=== PATIENT | female | born 1955 | race Caucasian/White ===

== ENCOUNTER 2017-05-02 22:45 | Inpatient (IN) | payer MEDICARE ==
[2017-05-02] MEDS ORDERED: Lorazepam 2 MG/ML VIAL ONE (23:47)
[2017-05-03] MEDS ORDERED: Albuterol Sulfate 2.5 mg/0.5 ml Neb ONE (01:02)
[2017-05-03 01:15] LABS: Actual Bicarbonate (HCO3a) 20.9 mEq/L (22-26); Base Excess (BEa) -4.4 mEq/L (0 (+/-) 2.5); CO2 Tension 38.9 mmHg (35.0-45.0); Hematocrit-ABG 37.4 % (36.0-47.0); Hemoglobin (Hb) 12.1 g/dL (12.0-16.0); O2 Tension (PaO2) 183.6 mmHg (80.0-100.0); pH, Arterial 7.35 (7.35-7.45)
[2017-05-03 01:16] LABS: Analyzer IN Cardio ER; Calcium, Ionized 1.2 mmol/L (1.12-1.30); Puncture Site LRA
[2017-05-03 01:17] LABS: ALV-art Gradient 124.275 (0-20)
[2017-05-03] MEDS ORDERED: Potassium Chloride 20 MEQ TAB ONE (01:42)
[2017-05-03 01:44] LABS: #Lymphocytes 0.9 thou/uL (1.20-3.40); #Monocytes 0.3 thou/uL (0.11-0.59); %Eosinophils 0.1 % (0.0-10.0); %Lymphocytes 5.5 % (21.0-51.0); %Monocytes 1.9 % (0.0-10.0); %Neutrophils 92.5 % (42.0-75.0); Mean Corpuscular HGB CONC 33.5 g/dL (32.0-36.0); Mean Corpuscular Hemoglobin 30.2 pg (27.0-31.0); Mean Corpuscular Volume 90.3 fl (81.0-99.0); Mean Platelet Volume 8.2 fL (7.4-10.4); Platelet Count 419 thou/uL (130-400); RBC Distribution Width 11.8 % (11.5-14.5); White Blood Cell (WBC) Count 16.2 thou/uL (4.8-10.8)
[2017-05-03 02:09] LABS: ALT (SGPT) 8 U/L (8-55); AST (SGOT) 14 U/L (5-34); Albumin 3.1 g/dL (3.4-4.8); Alkaline Phosphatase 202 U/L (40-150); Anion Gap 18 mmol/L (10-20); BUN (Urea Nitrogen) 14 mg/dL (9.8-20.1); Bilirubin, Total 0.5 mg/dL (0.2-1.2); Calc. Creatinine Clearance 0 mL/min (70-130); Calcium 9.3 mg/dL (7.8-10.44); Carbon Dioxide 22 mmol/L (23-31); Chloride 101 mmol/L (98-107); Estimated GFR-MDRD 69; Globulin 4.2 g/dL (2.4-3.5); Glucose 386 mg/dL (80-115); Magnesium 1.7 mg/dL (1.6-2.6); Protein, Total 7.3 g/dL (6.0-8.3); Sodium 138 mmol/L (136-145)
[2017-05-03 02:13] LABS: CKMB 2.2 ng/mL (0-6.6); Potassium 2.8 mmol/L (3.5-5.1); Troponin I Less than 0.010 ng/mL (< 0.028)
[2017-05-03] MEDS ORDERED: Potassium Chloride 20 MEQ/100 ML PREMIX BAG ONE (03:08)
[2017-05-03] MEDS ORDERED: Albuterol Sulfate 2.5 mg/3 ml Neb ONE ×2 (03:15)
[2017-05-03] MEDS ORDERED: Dextrose 5% in Water 1,000 ML IV PRN ×3 (05:08→07:53)
[2017-05-03] MEDS ORDERED: Dextrose 50% Abboject 50 ML SYRINGE IVP PRN (05:08)
[2017-05-03] MEDS ORDERED: HumaLOG 300 UNITS/3 ML VIAL SC PRN (05:08)
[2017-05-03 05:31] VITALS: BMI 19.7
[2017-05-03] MEDS ORDERED: Albuterol Sulfate 2.5 mg/3 ml Neb NEB PRN (07:47)
[2017-05-03] MEDS ORDERED: Dextrose 50% Abboject 50 ML SYRINGE SLOW IVP PRN ×2 (07:52→07:53)
--- NOTE | 2017-05-03 07:58 | CT ---
PRELIMINARY REPORT/[facility]/EMERGENCY AFTER HOURS PROCEDURE: EXAM: CT Angiography Chest With Intravenous Contrast EXAM DATE/TIME: Exam ordered 05/03/2017 2:21 AM CLINICAL HISTORY: 62 years old, female; Pain; Chest pain; Type not specified; Patient HX: R/O pe TECHNIQUE: Axial computed tomographic angiography images of the chest with intravenous contrast using pulmonary embolism protocol. CONTRAST: 100 mL of ISOVUE administered intravenously. COMPARISON: No relevant prior studies available. FINDINGS: Pulmonary arteries: Unremarkable. No pulmonary embolism. Aorta: No acute findings. No thoracic aortic aneurysm. Lungs: There are extensive centrilobular nodular and tree in bud opacities throughout both lungs, con sistent with severe infectious bronchiolitis. Multiple lobular groundglass opacities in the periphery of the lungs likely represent pneumonia. Pleural space: Unremarkable. No significant effusion. No pneumothorax. Heart: Unremarkable. No cardiomegaly. No significant pericardial effusion. No evidence of RV dysfunct ion. Bones/joints: No acute fracture. No dislocation. Soft tissues: Unremarkable. Lymph nodes: Unremarkable. No enlarged lymph nodes. IMPRESSION: 1. There are extensive centrilobular nodular and tree in bud opacities throughout both lungs, consist ent with severe infectious bronchiolitis. 2. Multiple lobular groundglass opacities in the periphery of the lungs likely represent pneumonia. RECOMMEND followup imaging in 6-8 weeks to ensure resolution. Thank you for allowing us to participate in the care of your patient. Dictated and Authenticated by: Nick Juarez MD 05/03/2017 2:54 AM Central Time ([place] & [place]) FINAL REPORT CT ANGIOGRAM OF CHEST: Date: 05/03/17 HISTORY: COPD exacerbation. Difficulty breathing. Shortness of breath. COMPARISON: 09/13/16. TECHNIQUE: CT angiogram of chest performed in axial plane. Coronal and bilateral oblique three-dimensional refor matted images are submitted for interpretation. FINDINGS: This report agrees with the preliminary report by Moustapha. No evidence of pulmonary artery embolism to t he level of the segmental arteries. There are extensive central lobular and tree-in-bud opacities thr oughout the lung parenchyma with evidence for infectious bronchiolitis. Continued surveillance to ens ure resolution is recommended. Additional ground-glass opacities suggesting infiltrate or pneumonia a re noted. POS: [facility]
[2017-05-03] MEDS ORDERED: Potassium Chloride 40 MEQ in Premix Bag 1 BAG IVPB SCH (08:00)
[2017-05-03] MEDS ORDERED: Potassium Chloride 40 MEQ, Admixture Fee 1 EACH in Sodium Chloride 0.9% 250 ML 250 ML IVPB SCH (08:15)
[2017-05-03 08:37] LABS: Hemoglobin A1c 11.1 % (4.0-6.0)
[2017-05-03] MEDS ORDERED: Non-Formulary Item 1 EACH (Lisinopril/Hydrochlorothiazide [Lisinopril-Hctz 10-12.5 Mg Tab PO SCH (09:00)
[2017-05-03] MEDS ORDERED: Non-Formulary Item 1 EACH (Ranitidine Hcl [Ranitidine Hcl] 300 MG) PO SCH (09:00)
[2017-05-03] MEDS ORDERED: Levothyroxine Sodium 50 MCG TAB PO SCH (09:00)
[2017-05-03] MEDS: Insulin Detemir 100 UNITS/ML 25 UNITS in Pre-Filled Syringe 1 EACH SC SCH (09:09)
[2017-05-03] MEDS: Azithromycin 500 MG, Admixture Fee 1 EACH in Sodium Chloride 0.9% 250 ML 250 ML IVPB SCH ×2 (09:26→10:36)
[2017-05-03] MEDS: HYDROcodone/Acetaminophen 5/325 mg Tablet PO PRN ×3 (09:37→21:48)
--- NOTE | 2017-05-03 09:37 | RAD ---
CHEST 1 VIEW: Date: 05/03/17 HISTORY: Shortness of breath. COPD exacerbation. COMPARISON: 05/02/17. FINDINGS: Portable upright chest demonstrates normal cardiac silhouette. There are diffuse reticulonodular opac ities. There is no pleural effusion or pneumothorax. IMPRESSION: Diffuse reticulonodular opacities. POS: [facility]
[2017-05-03] MEDS: clonazePAM 0.5 MG TAB PO SCH ×2 (09:38→21:43)
[2017-05-03] MEDS: Gabapentin 300 MG CAP PO SCH ×5 (09:38→21:43)
[2017-05-03] MEDS: Enoxaparin Sodium 40 MG/0.4 ML SYRINGE SC SCH (09:38)
[2017-05-03] MEDS: Famotidine 20 MG TAB PO SCH (09:38)
[2017-05-03] MEDS: Lisinopril/Hydrochlorothiazide 10 mg/12.5 mg Tablet PO SCH (09:39)
--- NOTE | 2017-05-03 11:06 | HP ---
DATE OF ADMISSION: 05/03/2017 CHIEF COMPLAINT: Shortness of breath. HISTORY OF PRESENT ILLNESS: This is a 62-year-old young white female with a known history of COPD wi th multiple admissions in the past. The patient presented this time with acute exacerbation, which s tarted a few days ago, which the patient was taking DuoNebs at home with no help and was persistent p ain in the left side of the chest, more of pleuritic in nature. She presented to the ER. Pain was e xcruciating and is more aggravated on deep breathing. She had a chest x-ray and also CTA of the ches t in the ER, which showed an evidence of bilateral pneumonia with evidence of bronchiolitis. She den ies having any nausea at this time. No vomiting. She continues to have short of breath. She has be en saturating well on 4 liters at 98%. Denies having any abdominal pain. Denies having any vomiting , diarrhea, or constipation. No history of any sick contacts. The patient did not take any flu vacc ine this season, but her flu test was negative. She rates her pain as 8 on 10 in intensity, nonradia ting on the left side of the chest and ribcage and aggravated on deep breathing. PAST MEDICAL HISTORY: 1. Asthma. 2. Type 2 diabetes mellitus. 3. Hypothyroidism. 4. Chronic obstructive pulmonary disease. PAST SURGICAL HISTORY: 1. x2. 2. Cholecystectomy. 3. Partial hysterectomy. 4. Left hip surgery. 5. Left submandibular gland removal because of the salivary stones. SOCIAL HISTORY: The patient denies alcohol. No history of illicit drug use. She smokes 1 pack a da y. FAMILY HISTORY: Significant for [place] in her father at young age. ALLERGIES: 1. CEPHALEXIN. 2. CIPROFLOXIN 3. CYCLOBENZAPRINE. 4. LEVOFLOXACIN. 5. NSAIDS. 6. PREDNISONE. 7. TORADOL. HOME MEDICATIONS: 1. Metformin 1000 mg p.o. b.i.d. 2. Clonazepam 0.5 mg p.o. b.i.d. 3. Gabapentin 600 mg p.o. q.i.d. 4. Lamotrigine 25 mg p.o. at bedtime. 5. Levothyroxine 112 mcg daily. 6. Lisinopril 10 one tablet p.o. daily. 7. Quetiapine 100 mg tablet at bedtime. 8. Ranitidine 300 mg p.o. daily. REVIEW OF SYSTEMS: All 12 systems are reviewed with the patient thoroughly and found to be negative at this time except the ones described in HPI. Constitutional: Weight loss or gain, sense of well-being, ability to conduct usual activities, exerc ise tolerance. Skin/Breast: Rash, itching, changes in hair growth or loss, nail changes, breast lumps, tenderness, swelling, nipple discharge. Eyes: Vision, double vision, tearing, blind spots, pain. ENT/Mouth: Headaches (location, time of onset, duration, precipitating factors), vertigo, lightheadedness, injury. Vision, double vision, tearing, blind spots, pain, nose b leeding, colds, obstruction, discharge, dental difficulties, gingival bleeding, dentures, neck stiffn ess, pain, tenderness, masses in thyroid or other areas Cardiovascular: Precordial pain, substernal distress, palpitations, syncope, dyspnea on exertion, or thopnea, nocturnal paroxysmal dyspnea, edema, cyanosis, hypertension, heart murmurs, varicosities, ph lebitis, claudication. Respiratory: Pain, shortness of breath, wheezing, stridor, cough, hemoptysis, fever or night sweats Gastrointestinal: Poor appetite, dysphagia, indigestion, abdominal pain, heartburn, eructation, naus ea, vomiting, hematemesis, jaundice, constipation, or diarrhea, abnormal stools (amanda-colored, tarry, bloody, greasy, foul smelling), flatulence, hemorrhoids, recent changes in bowel habits. Genitourinary: Urgency, frequency, dysuria, nocturia, hematuria, polyuria, oliguria, unusual (or kelly nge in) color of urine, stones, hesitancy, change in size of stream, dribbling, acute retention or in continence, libido, potency. Musculoskeletal: Pain, swelling, redness or heat of muscles or joints, limitation, of motion, muscular weakness, atrophy, cramps. Neurologic/Psychiatric: Convulsions, paralyses, tremor, incoordination, parasthesias, difficulties w ith memory of speech, sensory or motor disturbances, or muscular coordination (ataxia, tremor), emoti onal problems, anxiety, depression, previous psychiatric care, unusual perceptions, hallucinations. Allergy/Immunologic: Skin rash, anemia, bleeding tendency, polydipsia, polyuria, intolerance to heat or cold. PHYSICAL EXAMINATION: VITAL SIGNS: Blood pressures are 174/79, heart rate 130, respiratory rate 24, saturation 96% on 2 li ters. GENERAL: The patient is moderately built and moderately nourished, and continues to have left-sided pleuritic chest pain. Otherwise, she has no respiratory distress at this time. HEENT: Atraumatic, normocephalic. PERRLA. Extraocular movements were intact. Oral mucosa is pink and moist. CARDIOVASCULAR: S1, S2 normal. No murmurs, rubs or gallops. LUNGS: Bilateral air entry is reduced with wheezing and crackles noted in the lower bases, more pron ounced in the left lung in the lower base. NECK: No thyromegaly. No JVD was noted. ABDOMEN: Soft, nontender, no guarding, no rebound tenderness. Bowel sounds normal. MUSCULOSKELETAL: No calf tenderness. No pedal edema. No joint tenderness, no joint swelling. SKIN: No cyanosis, no erythema, no rash, no pallor. NEUROLOGIC: FERRY HAND examination II-XII intact. No focal deficits are noted. PSYCHIATRIC: No signs of suicidal ideation. No signs of harsha. No signs of depression. LYMPH NODES: No evidence of any lymphadenopathy was noted. LABORATORY DATA: WBC 16.2, hemoglobin is 13.0, hematocrit is 28.8, platelets 419. Sodium 138, potas sium 2.8, chloride is 101, bicarbonate is 22, BUN is 14, creatinine 0.84, blood sugar is 386. A1c is 11.1. Blood gases were done in the ER with a pH of 7.3, pCO2 38.9, and pO2 of 183. The patient was on 50% inspired oxygen. CTA was done of the chest and thorax showed no evidence of any pulmonary artery embolism to the level of the segmental arteries, but there is extensive centrilobular and tree-in-bud opacities throughout the lung parenchyma with evidence of infectious bronchiolitis. ASSESSMENT AND PLAN: 1. Acute chronic obstructive pulmonary disease exacerbation. 2. Acute infectious bronchiolitis. 3. Acute hypokalemia. 4. Acute hyperglycemia with poorly controlled type 2 diabetes mellitus. 5. Hypothyroidism. 6. Hyperlipidemia. 7. Hypertension, poorly controlled. PLAN: 1. Plan is to start the patient on nebulizer treatments every 4 hours with DuoNebs and albuterol neb s every 2 hours as needed. The patient has pretty severe bronchiolitis condition, but her saturation s are stable at this time, but will start the patient on IV steroids for severe inflammation. We mariposa l consult Pulmonary if the patient's condition gets worsen. 2. The patient has a severe hypokalemia likely from the diuretic use. At this time, we will start t he patient on potassium protocol replacement and we will check the magnesium too. 3. The patient has a poorly controlled type 2 diabetes mellitus, most likely of oral steroid use for her asthma. We will start the patient on Levemir 30 units in the morning and will do sliding scale insulin. Her A1c was 11.1. The patient has poorly controlled diabetes. I will start the patient on diabetic diet, 1800 calories. 4. Poorly controlled hypertension. We will restart the patient's home medications, most likely this could be either from the steroids or could be from the pain the patient is experiencing. 5. The patient has this persistent lower chest pain, most likely pleuritic in nature. We will close ly monitor for ruling out any cardiac disease and we will continue the patient on the telemetry. 6. DVT prophylaxis. Lovenox 40 mg subcu daily. I spent 70 minutes with this patient.
[2017-05-03] MEDS: Insulin Regular 300 UNITS/3 ML VIAL SC PRN ×2 (11:33→17:17)
[2017-05-03] MEDS: Insulin Regular 300 UNITS/3 ML VIAL ONE ×2 (11:39→11:41)
[2017-05-03] MEDS ORDERED: ISOVUE-370 76%-LOCM 1 ML ONE (13:53)
[2017-05-03] MEDS: lamoTRIgine 25 MG TAB PO SCH (21:43)
[2017-05-03] MEDS: HumaLOG 300 UNITS/3 ML VIAL SC PRN (21:44)
[2017-05-04 05:51] LABS: Anion Gap 14 mmol/L (10-20); BUN (Urea Nitrogen) 20 mg/dL (9.8-20.1); Calc. Creatinine Clearance 68 mL/min (70-130); Carbon Dioxide 22 mmol/L (23-31); Chloride 105 mmol/L (98-107); Estimated GFR-MDRD 81; Glucose 290 mg/dL (80-115); Potassium 3.8 mmol/L (3.5-5.1); Sodium 137 mmol/L (136-145)
[2017-05-04] MEDS: Levothyroxine Sodium 112 MCG TAB PO SCH (05:55)
[2017-05-04] MEDS: Insulin Regular 300 UNITS/3 ML VIAL SC PRN ×3 (05:57→16:40)
[2017-05-04 05:58] LABS: Band 26 % (5-11); Lymphocytes 4 % (21-51); MDiff Complete? YES; Mean Corpuscular HGB CONC 32.8 g/dL (32.0-36.0); Mean Corpuscular Hemoglobin 29.6 pg (27.0-31.0); Mean Corpuscular Volume 90.4 fl (81.0-99.0); Monocytes 1 % (0-10); Neutrophil 69 % (42-75); PLT Morphology Comment Appears Adequate; Platelet Count 376 thou/uL (130-400); RBC Distribution Width 11.9 % (11.5-14.5); Red Blood Cell (RBC) Count 3.72 mill/uL (4.20-5.40); White Blood Cell (WBC) Count 22.7 thou/uL (4.8-10.8)
[2017-05-04] MEDS: clonazePAM 0.5 MG TAB PO SCH ×2 (08:58→20:27)
[2017-05-04] MEDS: Azithromycin 500 MG, Admixture Fee 1 EACH in Sodium Chloride 0.9% 250 ML 250 ML IVPB SCH (09:00)
[2017-05-04] MEDS: Gabapentin 300 MG CAP PO SCH ×4 (09:01→20:27)
[2017-05-04] MEDS: Lisinopril/Hydrochlorothiazide 10 mg/12.5 mg Tablet PO SCH (09:01)
[2017-05-04] MEDS: Famotidine 20 MG TAB PO SCH (09:01)
[2017-05-04] MEDS: Insulin Detemir 100 UNITS/ML 25 UNITS in Pre-Filled Syringe 1 EACH SC SCH (09:02)
[2017-05-04] MEDS: Enoxaparin Sodium 40 MG/0.4 ML SYRINGE SC SCH (09:02)
[2017-05-04] MEDS: HYDROcodone/Acetaminophen 5/325 mg Tablet PO PRN ×2 (12:37→16:53)
--- NOTE | 2017-05-04 16:13 | PDOC.PN ---
- Subjective Encounter Start Date: 05/04/17 Encounter Start Time: 13:00 Patient is seen today, alert and oriented , She remains in severe pain in chest. She still SOB. - Objective Resuscitation Status: Resuscitation Status FULL:Full Resuscitation MAR Reviewed: Yes Vital Signs & Weight: Vital Signs (12 hours) Temp Pulse Pulse Pulse Resp BP BP 05/04/17 15:44 119 H 20 05/04/17 15:19 125 H 124 H 172/66 H 05/04/17 15:17 98.0 F 114 H 05/04/17 12:31 97.7 F 124 H 21 H 05/04/17 11:40 114 H 16 05/04/17 09:01 119 H 126/63 05/04/17 08:36 05/04/17 07:46 97.7 F 119 H 16 BP BP BP BP Pulse Ox Pulse Ox Pulse Ox 05/04/17 15:44 05/04/17 15:19 134/61 93 L 93 L 05/04/17 15:17 134/61 94 L 05/04/17 12:31 134/68 98 05/04/17 11:40 05/04/17 09:01 05/04/17 08:36 98 05/04/17 07:46 126/63 98 Weight Weight 116 lb 9.6 oz I&O: 05/03/17 05/04/17 05/05/17 06:59 06:59 06:59 Intake Total 1080 Balance 1080 Result Diagrams: 05/04/17 05:10 05/04/17 05:10 Additional Labs: Accuchecks 05/04/17 05/04/17 05/03/17 11:33 05:51 20:02 POC Glucose 277 H 376 H 218 H 05/03/17 16:08 POC Glucose 236 H Radiology Reviewed by me: Yes Phys Exam - Physical Examination HEENT: PERRLA, moist MMs Neck: no nodes, no JVD Respiratory: wheezing present Cardiovascular: RRR, no significant murmur Gastrointestinal: soft, non-tender Musculoskeletal: no edema, pulses present Neurological: non-focal, normal sensation Lymphatic: no nodes Psychiatric: normal affect, A&O x 3 Skin: no rash, normal turgor Dx/Plan (1) Sepsis Code(s): A41.9 - SEPSIS, UNSPECIFIED ORGANISM Status: Acute Comment: Patient has bacteremia with gram positive Cocci in chanin, started on vancomycina and Zosyn, will continue to Monitor closley for any worsening SOB, Will continue with IV fluids,.Discussed with pharmacy regarding PCN allergies. (2) COPD with acute exacerbation Code(s): J44.1 - CHRONIC OBSTRUCTIVE PULMONARY DISEASE W (ACUTE) EXACERBATION Status: Acute Comment: Will continue IV steroids, Will consult Pulmonary for worsening SOB. Continue Nebs (3) Acute respiratory failure with hypoxia Code(s): J96.01 - ACUTE RESPIRATORY FAILURE WITH HYPOXIA Status: Acute Comment: Will continue IV steroids, An dNebs treatment, pt able to maintain saturations. (4) HTN (hypertension) Code(s): I10 - ESSENTIAL (PRIMARY) HYPERTENSION Status: Acute (5) Type II diabetes mellitus, uncontrolled Code(s): E11.65 - TYPE 2 DIABETES MELLITUS WITH HYPERGLYCEMIA Status: Acute Comment: Continur with SSI and levemir, keep BG 140-180 - Plan cont current plan of care, PT/OT, hospice social worker, respiratory therapy, incentive spirometry, DVT proph w/lovenox * . - Discharge Day Encounter end time: 14:00 (60 min critical care time) Review of Systems - Review of Systems Constitutional: fever Eyes: negative: Pain, Vision Change, Conjunctivae Inflammation, Eyelid Inflammation, Redness, Other ENT: negative: Ear Pain, Ear Discharge, Nose Pain, Nose Discharge, Nose Congestion, Mouth Pain, Mouth Swelling, Throat Pain, Throat Swelling, Other Respiratory: Cough, Shortness of Breath, SOB with Excertion, Pleuritic Pain Cardiovascular: chest pain Gastrointestinal: negative: Nausea, Vomiting, Abdominal Pain, Diarrhea, Constipation, Melena, Hematochezia, Other Genitourinary: negative: Dysuria, Frequency, Incontinence, Hematuria, Retention , Other Musculoskeletal: negative: Neck Pain, Shoulder Pain, Arm Pain, Back Pain, Hand Pain, Leg Pain, Foot Pain, Other Skin: negative: Rash, Lesions, Ricky, Bruising, Other Neurological: negative: Weakness, Numbness, Incoordination, Change in Speech, Confusion, Seizures, Other - Medications/Allergies Allergies/Adverse Reactions: Allergies Allergy/AdvReac Type Severity Reaction Status Date / Time levofloxacin [From Levaquin] Allergy Severe Short of Verified 05/03/17 05:31 Breath cephalexin monohydrate Allergy Mild Rash Verified 05/03/17 05:31 [From Keflex] ciprofloxacin HCl Allergy Mild Rash Verified 05/03/17 05:31 [From Cipro] NSAIDS (Non-Steroidal Allergy Mild Verified 05/03/17 05:31 Anti-Inflamma ketorolac tromethamine Allergy Verified 05/03/17 05:31 [From Toradol] prednisone Allergy Verified 05/03/17 05:31 cyclobenzaprine HCl AdvReac Mild Stomach Verified 05/03/17 05:31 [From Flexeril] Ache Medications: Current Medications Hydrocodone Bitart/Acetaminophen ([place] 5/325) 1 tab PO Q4H PRN PRN Reason: Pain Last Admin: 05/04/17 12:37 Dose: 1 tab Albuterol Sulfate (Ventolin) 2.5 mg NEB [id number] PRN PRN Reason: SOB &/or Wheezing Albuterol/Ipratropium (Duoneb) 3 ml NEB [id number] [facility] Last Admin: 05/04/17 15:44 Dose: 3 ml Clonazepam (Klonopin) 0.5 mg PO BID [facility] Last Admin: 05/04/17 08:58 Dose: Not Given Dextrose/Water (Dextrose 50%) 25 gm SLOW IVP PRN PRN PRN Reason: Hypoglycemia Enoxaparin Sodium (Lovenox) 40 mg SC 0900 [facility] Last Admin: 05/04/17 09:02 Dose: 40 mg Famotidine (Pepcid) 40 mg PO DAILY [facility] Last Admin: 05/04/17 09:01 Dose: 40 mg Gabapentin (Neurontin) 600 mg PO QID [facility] Last Admin: 05/04/17 12:35 Dose: 600 mg Glucagon (Glucagon) 1 mg IM PRN PRN PRN Reason: Hypoglycemia Guaifenesin/Dextromethorphan (Robitussin Dm) 15 ml PO Q4H PRN PRN Reason: Cough Lisinopril/HCTZ (Prinizide 10-12.5) 1 tab PO DAILY [facility] Last Admin: 05/04/17 09:01 Dose: 1 tab Azithromycin 500 mg/Miscellaneous Medication 1 each/ Sodium Chloride 250 mls @ 250 mls/hr IVPB Q24HR [facility] Last Admin: 05/04/17 09:00 Dose: 250 mls Dextrose/Water (D5w) 1,000 mls @ 0 mls/hr IV .Q0M PRN; As Directed PRN Reason: Hypoglycemia Insulin Detemir 25 units/ (Miscellaneous Medication) 0.25 mls @ 0 mls/hr SC QAM [facility] Last Admin: 05/04/17 09:02 Dose: 0.25 mls Vancomycin HCl 1 gm/ Sodium (Chloride) 250 mls @ 250 mls/hr IVPB Q12HR [facility] Insulin Human Lispro (Humalog) 0 units SC .BEDTIME SLIDING SC PRN; Protocol PRN Reason: BEDTIME SLIDING SCALE Last Admin: 05/03/17 21:44 Dose: 2 unit Insulin Human Regular (Humulin R) 0 units SC .MODERATE SLIDING SC PRN PRN Reason: Moderate Correctional Scale Last Admin: 05/04/17 13:19 Dose: 6 units Lamotrigine (Lamictal) 25 mg PO [facility] Last Admin: 05/03/17 21:43 Dose: 25 mg Levothyroxine Sodium (Synthroid) 112 mcg PO 0600 [facility] Last Admin: 05/04/17 05:55 Dose: 112 mcg Methylprednisolone Sodium Succinate (Solu-Medrol) 40 mg IVP Q6HR [facility] Last Admin: 05/04/17 11:37 Dose: 40 mg Quetiapine Fumarate (Seroquel) 200 mg PO [facility] Last Admin: 05/03/17 21:43 Dose: 200 mg Sodium Chloride (Flush - Normal Saline) 10 ml IVF Q12HR [facility] Last Admin: 05/04/17 09:02 Dose: 10 ml Sodium Chloride (Flush - Normal Saline) 10 ml IVF PRN PRN PRN Reason: Saline Flush
[2017-05-04] MEDS: Sodium Chloride 0.9% 1,000 ML IV SCH ×2 (16:50→23:55)
[2017-05-04] MEDS: Piperacillin/Tazobactam 3.375 GM in Sodium Chloride 0.9% 100 ML IVPB SCH ×2 (19:25→23:49)
[2017-05-04] MEDS: Vancomycin HCl 750 MG in Sodium Chloride 0.9% 250 ML 250 ML IVPB SCH ×3 (19:29→21:07)
--- NOTE | 2017-05-04 20:06 | CON ---
DATE OF CONSULTATION: 05/04/2017 CONSULTING PHYSICIAN: Dr. Gabriel from the Hospitalist group. REASON FOR CONSULTATION: Chronic obstructive pulmonary disease exacerbation following encompassed 50 minutes time spent with the patient, greater than 50% of that time was spent counseling, and coordin ating the patient's care on the floor. HISTORY OF THE PRESENT ILLNESS: This patient is a 62-year-old female, who acts as her own historian. I have also the opportunity to review the records in her chart, she was admitted to the hospital on 05/03/2017 with a 3-week history of increasing cough, congestion, and shortness of breath. She stat es that she is a half-way smoker, now down to about 1 pack per day, previously smoking one 1-1/2 pack s per day. She has not ever been told she has COPD up until this admission. She has not been taking any type of inhaler therapy at home. She has been coughing up greenish yellow sputum for quite sometime. She denies any fever or chills. PAST MEDICAL HISTORY: 1. Asthma. 2. Diabetes mellitus type 2. 3. Hypothyroidism. PAST SURGICAL HISTORY: 1. section 2. Tonsillectomy and adenoidectomy. 3. Cholecystectomy. 4. Appendectomy. 5. Hysterectomy. 6. Left hip surgery. 7. Left submandibular gland removal. SOCIAL HISTORY: The patient smokes at least 1 pack per day. She occasionally smokes marijuana. She apparently has tested positive for methamphetamines, but denies use of that. She does not drink alc ohol. She is disabled from bipolar disorder and lives at home. She states that her son was murdered 1 year ago and she is still sad from that. FAMILY MEDICAL HISTORY: Remarkable for heart disease. ALLERGIES: CEPHALEXIN, CIPRO, CYCLOBENZAPRINE, LEVOFLOXACIN, NSAIDS, PREDNISONE, and TORADOL. MEDICATIONS PRIOR TO ADMISSION: Metformin, clonazepam, gabapentin, Lamictal, levothyroxine, lisinopr il, Seroquel, and ranitidine. REVIEW OF SYSTEMS: Twelve-point review of systems otherwise negative except for in the history of pr esent illness. PHYSICAL EXAMINATION: VITAL SIGNS: Temperature 98.0, pulse 119, respirations 20, blood pressure 170/66, and O2 sat 93% on 3 liters. GENERAL: She is awake and alert. She converses without difficulty and in no distress. She is alert and oriented. NEUROLOGIC: Cranial nerves II-XII are intact. She moves all 4 extremities, no sensory deficits note d. HEENT: Pupils react. Sclerae are anicteric. Oropharynx clear. NECK: No adenopathy, no JVD, no bruits. LUNGS: She has bilateral harsh expiratory wheezing and a few crackles. CARDIAC: S1 and S2, slightly tachycardic without murmur, rub, or gallop. ABDOMEN: Soft, nontender, no hepatosplenomegaly. EXTREMITIES: No clubbing, cyanosis, or edema. SKIN: Demonstrates no rashes. Cultures from her blood, it demonstrated gram positive cocci in 1 out of 2 bottles. LABORATORY AND X-RAY FINDINGS: Sodium 137, potassium 3.8, chloride 105, CO2 of 22, BUN 20, creatinin e 0.7, glucose 290. White blood cell count 22.7. Hemoglobin 11, hematocrit 33, platelet count 376. Her CT of the chest and chest x-ray were reviewed personally by myself. She has bronchiectasis note d throughout. She has some tree-in-bud opacities. ASSESSMENT: 1. Chronic obstructive pulmonary disease with exacerbation. 2. Probable concurrent pneumonia versus bronchiectasis. 3. Multiple drug allergies. 4. Tobacco abuse. RECOMMENDATIONS: I reviewed the orders and agree with the current treatment including piperacillin, vancomycin, and the steroids. Continue the breathing treatments. I think that it will just take rm e time for her to improve. She needs to stop smoking. Thank you for the referral. I will follow along with you.
[2017-05-04] MEDS: lamoTRIgine 25 MG TAB PO SCH (20:27)
[2017-05-04] MEDS ORDERED: Vancomycin HCl 1 GM in Sodium Chloride 0.9% 250 ML 250 ML IVPB SCH (21:00)
[2017-05-04] MEDS: HumaLOG 300 UNITS/3 ML VIAL SC PRN (21:29)
[2017-05-05] MEDS: Piperacillin/Tazobactam 3.375 GM in Sodium Chloride 0.9% 100 ML IVPB SCH ×4 (05:09→23:50)
[2017-05-05] MEDS: Levothyroxine Sodium 112 MCG TAB PO SCH (05:10)
[2017-05-05 05:46] LABS: Anion Gap 10 mmol/L (10-20); BUN (Urea Nitrogen) 17 mg/dL (9.8-20.1); Calc. Creatinine Clearance 71 mL/min (70-130); Calcium 8.7 mg/dL (7.8-10.44); Carbon Dioxide 26 mmol/L (23-31); Chloride 107 mmol/L (98-107); Estimated GFR-MDRD 86; Glucose 243 mg/dL (80-115); Potassium 3.3 mmol/L (3.5-5.1); Sodium 140 mmol/L (136-145)
[2017-05-05] MEDS: HYDROcodone/Acetaminophen 5/325 mg Tablet PO PRN ×2 (05:55→10:09)
[2017-05-05 06:22] LABS: Band 27 % (5-11); Hemoglobin 10.6 g/dL (12.0-16.0); Lymphocytes 3 % (21-51); MDiff Complete? YES; Mean Corpuscular HGB CONC 33.6 g/dL (32.0-36.0); Mean Corpuscular Hemoglobin 30.7 pg (27.0-31.0); Mean Corpuscular Volume 91.2 fl (81.0-99.0); Mean Platelet Volume 7.7 fL (7.4-10.4); Monocytes 2 % (0-10); Neutrophil 68 % (42-75); PLT Morphology Comment Appears Adequate; Platelet Count 363 thou/uL (130-400); RBC Morphology Normal; Red Blood Cell (RBC) Count 3.47 mill/uL (4.20-5.40); White Blood Cell (WBC) Count 17.5 thou/uL (4.8-10.8)
[2017-05-05] MEDS: clonazePAM 0.5 MG TAB PO SCH ×2 (09:59→20:26)
[2017-05-05] MEDS: Gabapentin 300 MG CAP PO SCH ×4 (09:59→20:27)
[2017-05-05] MEDS: Enoxaparin Sodium 40 MG/0.4 ML SYRINGE SC SCH (10:00)
[2017-05-05] MEDS: Lisinopril/Hydrochlorothiazide 10 mg/12.5 mg Tablet PO SCH (10:00)
[2017-05-05] MEDS: Famotidine 20 MG TAB PO SCH (10:00)
[2017-05-05] MEDS: Vancomycin HCl 750 MG in Sodium Chloride 0.9% 250 ML 250 ML IVPB SCH ×2 (10:43→21:23)
[2017-05-05] MEDS: Insulin Detemir 100 UNITS/ML 25 UNITS in Pre-Filled Syringe 1 EACH SC SCH (10:49)
[2017-05-05] MEDS: Insulin Regular 300 UNITS/3 ML VIAL SC PRN ×2 (12:14→18:12)
[2017-05-05] MEDS: Guaifenesin DM 100-10/5 ML UDCUP PO PRN (12:35)
[2017-05-05] MEDS: Sodium Chloride 0.9% 1,000 ML IV SCH ×2 (13:25→17:25)
--- NOTE | 2017-05-05 14:01 | PDOC.PN ---
- Subjective Encounter Start Date: 05/05/17 Encounter Start Time: 12:00 Patient is seen today, alert and oriented, Pt c/o severe ittching and Excoriation with white discharge of vaginal area. - Objective Resuscitation Status: Resuscitation Status FULL:Full Resuscitation MAR Reviewed: Yes Vital Signs & Weight: Vital Signs (12 hours) Temp Pulse Resp BP Pulse Ox 05/05/17 12:00 80 20 145/99 H 96 05/05/17 11:10 117 H 20 05/05/17 10:00 107 H 05/05/17 08:00 97.9 F 108 H 20 122/62 92 L 05/05/17 04:00 97.2 F L 107 H 18 116/57 L 94 L 05/05/17 02:20 111 H 16 90 L Weight Weight 121 lb 1.6 oz I&O: 05/04/17 05/05/17 05/06/17 06:59 06:59 06:59 Intake Total 1080 2100 Balance 1080 2100 Result Diagrams: 05/05/17 04:35 05/05/17 04:35 Additional Labs: Accuchecks 05/05/17 05/05/17 05/04/17 11:57 06:05 21:21 POC Glucose 401 H 269 H 411 H 05/04/17 05/04/17 17:28 16:37 POC Glucose 412 H 474 H Radiology Reviewed by me: Yes Phys Exam - Physical Examination HEENT: PERRLA, moist MMs Neck: no nodes, no JVD Respiratory: wheezing present Cardiovascular: RRR, no significant murmur Gastrointestinal: soft, non-tender Musculoskeletal: no edema, pulses present Neurological: non-focal, normal sensation Lymphatic: no nodes Psychiatric: normal affect Dx/Plan (1) Sepsis Code(s): A41.9 - SEPSIS, UNSPECIFIED ORGANISM Status: Acute Comment: Patient has bacteremia with gram positive Cocci in chanin, started on vancomycina and Zosyn, will continue to Monitor closley for any worsening SOB, Will continue with IV fluids,. (2) COPD with acute exacerbation Code(s): J44.1 - CHRONIC OBSTRUCTIVE PULMONARY DISEASE W (ACUTE) EXACERBATION Status: Acute Comment: Will continue IV steroids, consulted Pulmonary for worsening SOB. Continue Nebs (3) Acute respiratory failure with hypoxia Code(s): J96.01 - ACUTE RESPIRATORY FAILURE WITH HYPOXIA Status: Acute Comment: Will continue IV steroids, An dNebs treatment, pt able to maintain saturations. (4) HTN (hypertension) Code(s): I10 - ESSENTIAL (PRIMARY) HYPERTENSION Status: Acute (5) Type II diabetes mellitus, uncontrolled Code(s): E11.65 - TYPE 2 DIABETES MELLITUS WITH HYPERGLYCEMIA Status: Acute Comment: Continur with SSI and levemir, keep BG 140-180 (6) Candidiasis of vulva and vagina Code(s): B37.3 - CANDIDIASIS OF VULVA AND VAGINA Status: Acute Comment: Will start on FLuconazole for this extensive vaginal candidiasis. - Plan cont current plan of care, frost catheter, continue antibiotics, respiratory therapy, incentive spirometry, out of bed/ambulate, DVT proph w/lovenox * . - Discharge Day Encounter end time: 12:35 Review of Systems - Review of Systems Constitutional: negative: fever, chills, sweats, weakness, malaise, other Eyes: negative: Pain, Vision Change, Conjunctivae Inflammation, Eyelid Inflammation, Redness, Other ENT: negative: Ear Pain, Ear Discharge, Nose Pain, Nose Discharge, Nose Congestion, Mouth Pain, Mouth Swelling, Throat Pain, Throat Swelling, Other Respiratory: Shortness of Breath, SOB with Excertion, Wheezing Cardiovascular: negative: chest pain, palpitations, orthopnea, paroxysmal nocturnal dyspnea, edema, light headedness, other Gastrointestinal: negative: Nausea, Vomiting, Abdominal Pain, Diarrhea, Constipation, Melena, Hematochezia, Other Genitourinary: negative: Dysuria, Frequency, Incontinence, Hematuria, Retention , Other Musculoskeletal: negative: Neck Pain, Shoulder Pain, Arm Pain, Back Pain, Hand Pain, Leg Pain, Foot Pain, Other - Medications/Allergies Allergies/Adverse Reactions: Allergies Allergy/AdvReac Type Severity Reaction Status Date / Time levofloxacin [From Levaquin] Allergy Severe Short of Verified 05/03/17 05:31 Breath cephalexin monohydrate Allergy Mild Rash Verified 05/03/17 05:31 [From Keflex] ciprofloxacin HCl Allergy Mild Rash Verified 05/03/17 05:31 [From Cipro] NSAIDS (Non-Steroidal Allergy Mild Verified 05/03/17 05:31 Anti-Inflamma ketorolac tromethamine Allergy Verified 05/03/17 05:31 [From Toradol] prednisone Allergy Verified 05/03/17 05:31 cyclobenzaprine HCl AdvReac Mild Stomach Verified 05/03/17 05:31 [From Flexeril] Ache Medications: Current Medications Hydrocodone Bitart/Acetaminophen ([place] 5/325) 1 tab PO Q4H PRN PRN Reason: Pain Last Admin: 05/05/17 10:09 Dose: 1 tab Hydrocodone Bitart/Acetaminophen ([place] 10/325) 1 tab PO Q4H PRN PRN Reason: pain Albuterol Sulfate (Ventolin) 2.5 mg NEB [id number] PRN PRN Reason: SOB &/or Wheezing Albuterol/Ipratropium (Duoneb) 3 ml NEB [id number] [facility] Last Admin: 05/05/17 11:10 Dose: 3 ml Clonazepam (Klonopin) 0.5 mg PO BID [facility] Last Admin: 05/05/17 09:59 Dose: 0.5 mg Dextrose/Water (Dextrose 50%) 25 gm SLOW IVP PRN PRN PRN Reason: Hypoglycemia Enoxaparin Sodium (Lovenox) 40 mg SC 0900 [facility] Last Admin: 05/05/17 10:00 Dose: 40 mg Famotidine (Pepcid) 40 mg PO DAILY [facility] Last Admin: 05/05/17 10:00 Dose: 40 mg Fluconazole (Diflucan) 100 mg PO DAILY [facility] Gabapentin (Neurontin) 600 mg PO QID [facility] Last Admin: 05/05/17 12:36 Dose: 600 mg Glucagon (Glucagon) 1 mg IM PRN PRN PRN Reason: Hypoglycemia Guaifenesin/Dextromethorphan (Robitussin Dm) 15 ml PO Q4H PRN PRN Reason: Cough Last Admin: 05/05/17 12:35 Dose: 15 ml Lisinopril/HCTZ (Prinizide 10-12.5) 1 tab PO DAILY [facility] Last Admin: 05/05/17 10:00 Dose: 1 tab Dextrose/Water (D5w) 1,000 mls @ 0 mls/hr IV .Q0M PRN; As Directed PRN Reason: Hypoglycemia Sodium Chloride (Normal Saline 0.9%) 1,000 mls @ 125 mls/hr IV .Q8H [facility] Last Admin: 05/04/17 23:55 Dose: 1,000 mls Piperacillin Sod/Tazobactam (Sod 3.375 gm/ Sodium Chloride) 100 mls @ 200 mls/ hr IVPB 0500,1100,1700,2300 [facility] Last Admin: 05/05/17 12:04 Dose: 100 mls Vancomycin HCl 750 mg/ Sodium (Chloride) 250 mls @ 250 mls/hr IVPB 1000,2200 [facility] Last Admin: 05/05/17 10:43 Dose: 250 mls Insulin Detemir 35 units/ (Miscellaneous Medication) 0.35 mls @ 0 mls/hr SC QAM MOHAMUD PRN Reason: As Directed Insulin Human Lispro (Humalog) 0 units SC .BEDTIME SLIDING SC PRN; Protocol PRN Reason: BEDTIME SLIDING SCALE Last Admin: 05/04/17 21:29 Dose: 5 unit Insulin Human Regular (Humulin R) 0 units SC .MODERATE SLIDING SC PRN PRN Reason: Moderate Correctional Scale Last Admin: 05/05/17 12:14 Dose: 10 units Lamotrigine (Lamictal) 25 mg PO [facility] Last Admin: 05/04/17 20:27 Dose: 25 mg Levothyroxine Sodium (Synthroid) 112 mcg PO 0600 [facility] Last Admin: 05/05/17 05:10 Dose: 112 mcg Methylprednisolone Sodium Succinate (Solu-Medrol) 40 mg IVP Q6HR [facility] Last Admin: 05/05/17 12:06 Dose: 40 mg Nystatin/Triamcinolone Acetonide (Mycogen Ii Cream) 0 gm TOP BID [facility] Quetiapine Fumarate (Seroquel) 200 mg PO [facility] Last Admin: 05/04/17 20:28 Dose: 200 mg Sodium Chloride (Flush - Normal Saline) 10 ml IVF Q12HR [facility] Last Admin: 05/05/17 10:00 Dose: Not Given Sodium Chloride (Flush - Normal Saline) 10 ml IVF PRN PRN PRN Reason: Saline Flush
[2017-05-05] MEDS: HYDROcodone/Acetaminophen 10/325 mg Tablet PO PRN (14:49)
--- NOTE | 2017-05-05 15:26 | PRG ---
DATE OF SERVICE: 05/05/2017 SUBJECTIVE: The patient says she feels marginally better than yesterday. PHYSICAL EXAMINATION: VITAL SIGNS: Temperature 97.9, pulse 80, respirations 20, O2 sat 96% on 2 liters, blood pressure 132 /73. HEENT: Unremarkable. NECK: No JVD. LUNGS: She has end expiratory wheezing bilaterally, which is somewhat better than compared to yester day. CARDIAC: S1 and S2 regular. ABDOMEN: Soft. EXTREMITIES: No edema. LABORATORY DATA: White blood cell count 17, hematocrit 31.6, platelet count 363. Sodium 140, potass ium 3.3, chloride 107, CO2 of 26, BUN 17, creatinine 0.7, glucose ranging between 243 and 401. ASSESSMENT: 1. Chronic obstructive pulmonary disease with exacerbation. 2. Pneumonia versus bronchiectasis. 3. Multiple drug allergies. PLAN: She is continuing IV antibiotics, breathing treatments, and IV steroids, so far her progress i s good.
--- NOTE | 2017-05-05 17:50 | EKG ---
Test Reason : Blood Pressure : / mmHG Vent. Rate : 135 BPM Atrial Rate : 135 BPM P-R Int : 136 ms QRS Dur : 080 ms QT Int : 380 ms P-R-T Axes : 083 082 066 degrees QTc Int : 570 ms Sinus tachycardia Possible Left atrial enlargement Borderline ECG Confirmed by NATALIE HERNANDEZ D.O. ([id number]), editor managing newspaper LOUIE BRYANT ([id number]) on 05/05/2017 5:48:22 PM Referred By: Confirmed By:NATALIE HERNANDEZ D.O.
[2017-05-05] MEDS: lamoTRIgine 25 MG TAB PO SCH (20:21)
[2017-05-05] MEDS: HumaLOG 300 UNITS/3 ML VIAL SC PRN (20:33)
[2017-05-05] MEDS: Nystatin/Triamcinolone Cream 15 GM TUBE TOP SCH (21:22)
[2017-05-06] MEDS: Sodium Chloride 0.9% 1,000 ML IV SCH ×2 (00:24→11:04)
[2017-05-06] MEDS: Piperacillin/Tazobactam 3.375 GM in Sodium Chloride 0.9% 100 ML IVPB SCH ×4 (04:03→23:06)
[2017-05-06 05:34] LABS: #Lymphocytes 1.4 thou/uL (1.20-3.40); #Monocytes 0.4 thou/uL (0.11-0.59); #Neutrophils 11.1 thou/uL (1.40-6.50); %Eosinophils 0.2 % (0.0-10.0); %Lymphocytes 10.5 % (21.0-51.0); %Monocytes 3.2 % (0.0-10.0); %Neutrophils 86.1 % (42.0-75.0); Hemoglobin 10.5 g/dL (12.0-16.0); Mean Corpuscular HGB CONC 33.3 g/dL (32.0-36.0); Mean Corpuscular Hemoglobin 30.3 pg (27.0-31.0); Mean Corpuscular Volume 91.1 fl (81.0-99.0); Mean Platelet Volume 7.5 fL (7.4-10.4); Platelet Count 318 thou/uL (130-400); Red Blood Cell (RBC) Count 3.48 mill/uL (4.20-5.40); White Blood Cell (WBC) Count 12.9 thou/uL (4.8-10.8)
[2017-05-06] MEDS: Levothyroxine Sodium 112 MCG TAB PO SCH (05:34)
[2017-05-06 05:46] LABS: Anion Gap 10 mmol/L (10-20); BUN (Urea Nitrogen) 14 mg/dL (9.8-20.1); Calc. Creatinine Clearance 78 mL/min (70-130); Calcium 8.1 mg/dL (7.8-10.44); Carbon Dioxide 26 mmol/L (23-31); Chloride 106 mmol/L (98-107); Estimated GFR-MDRD 88; Glucose 282 mg/dL (80-115); Potassium 3.7 mmol/L (3.5-5.1); Sodium 138 mmol/L (136-145)
[2017-05-06] MEDS: HYDROcodone/Acetaminophen 5/325 mg Tablet PO PRN (05:51)
[2017-05-06] MEDS: Guaifenesin DM 100-10/5 ML UDCUP PO PRN (05:52)
[2017-05-06] MEDS: Insulin Regular 300 UNITS/3 ML VIAL SC PRN ×3 (05:55→17:05)
[2017-05-06 09:27] LABS: Vancomycin, Trough 9.1 ug/mL
[2017-05-06] MEDS: Famotidine 20 MG TAB PO SCH ×2 (09:44→21:22)
[2017-05-06] MEDS: Fluconazole 100 MG TAB PO SCH (09:44)
[2017-05-06] MEDS: Gabapentin 300 MG CAP PO SCH ×4 (09:44→21:21)
[2017-05-06] MEDS: Lisinopril/Hydrochlorothiazide 10 mg/12.5 mg Tablet PO SCH (09:44)
[2017-05-06] MEDS: Insulin Detemir 100 UNITS/ML 35 UNITS in Pre-Filled Syringe 1 EACH SC SCH (09:47)
[2017-05-06] MEDS: Enoxaparin Sodium 40 MG/0.4 ML SYRINGE SC SCH (09:49)
[2017-05-06] MEDS: clonazePAM 0.5 MG TAB PO SCH ×2 (09:50→21:19)
[2017-05-06] MEDS: Nystatin/Triamcinolone Cream 15 GM TUBE TOP SCH ×2 (09:51→21:20)
[2017-05-06] MEDS: HYDROcodone/Acetaminophen 10/325 mg Tablet PO PRN ×2 (10:13→17:10)
[2017-05-06] MEDS: Vancomycin HCl 750 MG in Sodium Chloride 0.9% 250 ML 250 ML IVPB SCH (10:38)
[2017-05-06] MEDS: Vancomycin HCl 1.25 GM in Sodium Chloride 0.9% 250 ML 250 ML IVPB SCH ×2 (11:01→21:19)
--- NOTE | 2017-05-06 13:07 | PRG ---
DATE OF SERVICE: 05/06/2017 SUBJECTIVE: The patient says she feels better. OBJECTIVE: VITAL SIGNS: Temperature 97.9, pulse 117, respiration 20, O2 sat 96% on 2 liters and blood pressure 150/79. HEENT: Unremarkable. NECK: No JVD. LUNGS: Expiratory wheezing bilaterally. CARDIOVASCULAR: S1 and S2 regular. ABDOMEN: Soft. EXTREMITIES: No edema. LABORATORY DATA: White blood cell count 12.9, hematocrit 31.7 and platelet count 315. Sodium 130, p otassium 3.7, BUN 14, creatinine 0.6 and glucose 282. ASSESSMENT: 1. Chronic obstructive pulmonary disease with exacerbation. 2. Pneumonia versus bronchiectasis. PLAN: Continue antibiotics, nebulization treatments and steroids. She could be transferred to the edical floor.
--- NOTE | 2017-05-06 13:27 | PDOC.PN ---
- Subjective Encounter Start Date: 05/06/17 Encounter Start Time: 12:00 patient is seen today, alert and oriented. Improving from Sepsis from gram posiitve cooci strep virigan. WNo other concerns noted. - Objective Resuscitation Status: Resuscitation Status FULL:Full Resuscitation MAR Reviewed: Yes Vital Signs & Weight: Vital Signs (12 hours) Temp Pulse Resp BP Pulse Ox 05/06/17 09:49 117 H 20 05/06/17 04:00 97.9 F 96 20 150/79 H 96 Weight Weight 127 lb I&O: 05/05/17 05/06/17 05/07/17 06:59 06:59 06:59 Intake Total 2100 3800 Balance 2100 3800 Result Diagrams: 05/06/17 05:21 05/06/17 05:21 Additional Labs: Accuchecks 05/06/17 05/06/17 05/05/17 10:44 05:54 20:02 POC Glucose 440 H 350 H 394 H 05/05/17 17:22 POC Glucose 247 H Radiology Reviewed by me: Yes Phys Exam - Physical Examination HEENT: PERRLA, moist MMs Neck: no nodes, no JVD Respiratory: wheezing present Cardiovascular: RRR, no significant murmur Gastrointestinal: soft, non-tender Musculoskeletal: no edema, pulses present Neurological: non-focal, normal sensation Lymphatic: no nodes Psychiatric: normal affect, A&O x 3 Dx/Plan (1) Sepsis Code(s): A41.9 - SEPSIS, UNSPECIFIED ORGANISM Status: Acute Comment: Patient has bacteremia with strep virdans, started on vancomycin and Zosyn, will continue to Monitor closley for any worsening SOB, Will continue with IV fluids, sensitivty still pending. (2) COPD with acute exacerbation Code(s): J44.1 - CHRONIC OBSTRUCTIVE PULMONARY DISEASE W (ACUTE) EXACERBATION Status: Acute Comment: Will reduce IV steroids to TID, improved aeration, has worsening hyperglycemi with steroids, consulted Pulmonary for worsening SOB. Continue Nebs (3) Acute respiratory failure with hypoxia Code(s): J96.01 - ACUTE RESPIRATORY FAILURE WITH HYPOXIA Status: Acute Comment: Will continue IV steroids, An dNebs treatment, pt able to maintain saturations. (4) HTN (hypertension) Code(s): I10 - ESSENTIAL (PRIMARY) HYPERTENSION Status: Acute Comment: stbale at goal. (5) Type II diabetes mellitus, uncontrolled Code(s): E11.65 - TYPE 2 DIABETES MELLITUS WITH HYPERGLYCEMIA Status: Acute Comment: worsening Continur with SSI and levemir increase, keep BG 140-180 (6) Candidiasis of vulva and vagina Code(s): B37.3 - CANDIDIASIS OF VULVA AND VAGINA Status: Acute Comment: Will start on FLuconazole for this extensive vaginal candidiasis. - Plan cont current plan of care, continue antibiotics, PT/OT, social services specialist, incentive spirometry, out of bed/ambulate, DVT proph w/lovenox * . - Discharge Day Encounter end time: 12:40 Review of Systems - Review of Systems Constitutional: weakness, malaise Eyes: negative: Pain, Vision Change, Conjunctivae Inflammation, Eyelid Inflammation, Redness, Other ENT: negative: Ear Pain, Ear Discharge, Nose Pain, Nose Discharge, Nose Congestion, Mouth Pain, Mouth Swelling, Throat Pain, Throat Swelling, Other Respiratory: Cough, Shortness of Breath, SOB with Excertion, Pleuritic Pain, Wheezing Cardiovascular: negative: chest pain, palpitations, orthopnea, paroxysmal nocturnal dyspnea, edema, light headedness, other Gastrointestinal: negative: Nausea, Vomiting, Abdominal Pain, Diarrhea, Constipation, Melena, Hematochezia, Other Genitourinary: Dysuria, Frequency (increased ) Musculoskeletal: negative: Neck Pain, Shoulder Pain, Arm Pain, Back Pain, Hand Pain, Leg Pain, Foot Pain, Other Skin: negative: Rash, Lesions, Ricky, Bruising, Other - Medications/Allergies Allergies/Adverse Reactions: Allergies Allergy/AdvReac Type Severity Reaction Status Date / Time levofloxacin [From Levaquin] Allergy Severe Short of Verified 05/03/17 05:31 Breath cephalexin monohydrate Allergy Mild Rash Verified 05/03/17 05:31 [From Keflex] ciprofloxacin HCl Allergy Mild Rash Verified 05/03/17 05:31 [From Cipro] NSAIDS (Non-Steroidal Allergy Mild Verified 05/03/17 05:31 Anti-Inflamma ketorolac tromethamine Allergy Verified 05/03/17 05:31 [From Toradol] prednisone Allergy Verified 05/03/17 05:31 cyclobenzaprine HCl AdvReac Mild Stomach Verified 05/03/17 05:31 [From Flexeril] Ache Medications: Current Medications Hydrocodone Bitart/Acetaminophen ([place] 5/325) 1 tab PO Q4H PRN PRN Reason: Pain Last Admin: 05/06/17 05:51 Dose: 1 tab Hydrocodone Bitart/Acetaminophen ([place] 10/325) 1 tab PO Q4H PRN PRN Reason: pain Last Admin: 05/06/17 10:13 Dose: 1 tab Albuterol Sulfate (Ventolin) 2.5 mg NEB [id number] PRN PRN Reason: SOB &/or Wheezing Albuterol/Ipratropium (Duoneb) 3 ml NEB [id number] [facility] Last Admin: 05/06/17 09:49 Dose: 3 ml Clonazepam (Klonopin) 0.5 mg PO BID [facility] Last Admin: 05/06/17 09:50 Dose: 0.5 mg Dextrose/Water (Dextrose 50%) 25 gm SLOW IVP PRN PRN PRN Reason: Hypoglycemia Enoxaparin Sodium (Lovenox) 40 mg SC 0900 [facility] Last Admin: 05/06/17 09:49 Dose: 40 mg Famotidine (Pepcid) 40 mg PO DAILY [facility] Last Admin: 05/06/17 09:44 Dose: 40 mg Fluconazole (Diflucan) 100 mg PO DAILY [facility] Last Admin: 05/06/17 09:44 Dose: 100 mg Gabapentin (Neurontin) 600 mg PO QID [facility] Last Admin: 05/06/17 09:44 Dose: 600 mg Glucagon (Glucagon) 1 mg IM PRN PRN PRN Reason: Hypoglycemia Guaifenesin/Dextromethorphan (Robitussin Dm) 15 ml PO Q4H PRN PRN Reason: Cough Last Admin: 05/06/17 05:52 Dose: 15 ml Lisinopril/HCTZ (Prinizide 10-12.5) 1 tab PO DAILY [facility] Last Admin: 05/06/17 09:44 Dose: 1 tab Dextrose/Water (D5w) 1,000 mls @ 0 mls/hr IV .Q0M PRN; As Directed PRN Reason: Hypoglycemia Sodium Chloride (Normal Saline 0.9%) 1,000 mls @ 125 mls/hr IV .Q8H [facility] Last Admin: 05/06/17 11:04 Dose: Not Given Piperacillin Sod/Tazobactam (Sod 3.375 gm/ Sodium Chloride) 100 mls @ 200 mls/ hr IVPB 0500,1100,1700,2300 [facility] Last Admin: 05/06/17 11:41 Dose: 100 mls Insulin Detemir 35 units/ (Miscellaneous Medication) 0.35 mls @ 0 mls/hr SC QAM MOHAMUD PRN Reason: As Directed Last Admin: 05/06/17 09:47 Dose: 0.35 mls Vancomycin HCl 1.25 gm/ Sodium (Chloride) 250 mls @ 166.667 mls/hr IVPB 1000, 2200 [facility] Last Admin: 05/06/17 11:01 Dose: 250 mls Insulin Human Lispro (Humalog) 0 units SC .BEDTIME SLIDING SC PRN; Protocol PRN Reason: BEDTIME SLIDING SCALE Last Admin: 05/05/17 20:33 Dose: 5 unit Insulin Human Regular (Humulin R) 0 units SC .MODERATE SLIDING SC PRN PRN Reason: Moderate Correctional Scale Last Admin: 05/06/17 11:24 Dose: 10 units Lamotrigine (Lamictal) 25 mg PO [facility] Last Admin: 05/05/17 20:21 Dose: 25 mg Levothyroxine Sodium (Synthroid) 112 mcg PO 0600 [facility] Last Admin: 05/06/17 05:34 Dose: 112 mcg Methylprednisolone Sodium Succinate (Solu-Medrol) 40 mg IVP Q8HR [facility] Nystatin/Triamcinolone Acetonide (Mycogen Ii Cream) 0 gm TOP BID [facility] Last Admin: 05/06/17 09:51 Dose: 1 gm Quetiapine Fumarate (Seroquel) 200 mg PO [facility] Last Admin: 05/05/17 20:26 Dose: 200 mg Sodium Chloride (Flush - Normal Saline) 10 ml IVF Q12HR [facility] Last Admin: 05/06/17 09:50 Dose: 10 ml Sodium Chloride (Flush - Normal Saline) 10 ml IVF PRN PRN PRN Reason: Saline Flush
[2017-05-06] MEDS ORDERED: Morphine 5 MG/ML SYRINGE SLOW IVP PRN (14:10)
[2017-05-06] MEDS: HumaLOG 300 UNITS/3 ML VIAL SC PRN (21:20)
[2017-05-06] MEDS: lamoTRIgine 25 MG TAB PO SCH (21:20)
[2017-05-06] MEDS: Morphine 4 MG/ML Carpuject SLOW IVP PRN (21:39)
[2017-05-07] MEDS: Piperacillin/Tazobactam 3.375 GM in Sodium Chloride 0.9% 100 ML IVPB SCH (05:12)
[2017-05-07] MEDS: Levothyroxine Sodium 112 MCG TAB PO SCH (05:12)
[2017-05-07] MEDS: Insulin Regular 300 UNITS/3 ML VIAL SC PRN ×3 (05:21→17:08)
[2017-05-07] MEDS: Enoxaparin Sodium 40 MG/0.4 ML SYRINGE SC SCH (08:27)
[2017-05-07] MEDS: Gabapentin 300 MG CAP PO SCH ×4 (08:28→21:52)
[2017-05-07] MEDS: Lisinopril/Hydrochlorothiazide 10 mg/12.5 mg Tablet PO SCH (08:28)
[2017-05-07] MEDS: clonazePAM 0.5 MG TAB PO SCH ×2 (08:28→21:52)
[2017-05-07] MEDS: Fluconazole 100 MG TAB PO SCH (08:28)
[2017-05-07] MEDS: Famotidine 20 MG TAB PO SCH ×3 (08:28→21:52)
[2017-05-07] MEDS: Insulin Detemir 100 UNITS/ML 35 UNITS in Pre-Filled Syringe 1 EACH SC SCH (08:29)
[2017-05-07] MEDS: Nystatin/Triamcinolone Cream 15 GM TUBE TOP SCH ×2 (08:29→21:53)
[2017-05-07] MEDS: Cefepime 2 GM, Syringe 2.5 ML in Sterile Water 10 ML SLOW IVP SCH ×2 (08:39→21:53)
[2017-05-07] MEDS ORDERED: Cefepime 2 GM in Sodium Chloride 0.9% 100 ML IVPB SCH (09:00)
--- NOTE | 2017-05-07 10:32 | PRG ---
DATE OF SERVICE: 05/07/2017 SUBJECTIVE: The patient is sleeping, appears comfortable. OBJECTIVE: VITAL SIGNS: On exam, temperature is 97.3, pulse 100, respirations 16, O2 sat 99% on 2 liters, blood pressure 188/84. HEENT: Unremarkable. NECK: No JVD. LUNGS: Less wheezing than before. CARDIAC: S1 and S2 regular. ABDOMEN: Soft. EXTREMITIES: No edema. ASSESSMENT: Chronic obstructive pulmonary disease with exacerbation. PLAN: I think we will go ahead and start tapering her prednisone. Increase activity as tolerated. Hopefully home soon.
[2017-05-07] MEDS: HYDROcodone/Acetaminophen 10/325 mg Tablet PO PRN ×2 (11:44→18:22)
--- NOTE | 2017-05-07 12:19 | PDOC.PN ---
- Subjective Encounter Start Date: 05/07/17 Encounter Start Time: 07:45 -: old records requested/rev Pt seen and examined, chart reviewed in its entirety, this is my first visit with this patient Pt state shes breathing is better today, still requiring breathing treatments regularly. No F/c, no N/V/d/C. States she doesnt have a PCP since hr PCP left town. No CP or SOB at present, no VICKERS, walking to bathroom without assistance. eulalia meds 10 point ROS performed and neg for all systems except as above - Objective Resuscitation Status: Resuscitation Status FULL:Full Resuscitation MAR Reviewed: Yes Vital Signs & Weight: Vital Signs (12 hours) Temp Pulse Resp BP BP Pulse Ox 05/07/17 11:35 96.3 F L 102 H 20 136/76 96 05/07/17 08:28 100 05/07/17 08:00 97.3 F L 100 16 188/84 H 99 05/07/17 06:48 16 05/07/17 04:00 98.1 F 102 H 16 148/70 H 94 L Weight Weight 127 lb I&O: 05/06/17 05/07/17 05/08/17 06:59 06:59 06:59 Intake Total 3800 600 Balance 3800 600 Result Diagrams: 05/06/17 05:21 05/06/17 05:21 Additional Labs: Accuchecks 05/07/17 05/07/17 05/06/17 11:53 05:18 19:41 POC Glucose 270 H 323 H 358 H 05/06/17 17:04 POC Glucose 359 H Radiology Reviewed by me: Yes EKG Reviewed by me: Yes Phys Exam - Physical Examination Constitutional: NAD HEENT: PERRLA, moist MMs, sclera anicteric, oral pharynx no lesions Neck: no nodes, no JVD, supple, full ROM poor air movement, prolonged expiratory phase, no rhonchi Cardiovascular: RRR, no significant murmur, no rub Gastrointestinal: soft, non-tender, no distention, positive bowel sounds Musculoskeletal: no edema, pulses present Neurological: non-focal, normal sensation, moves all 4 limbs Lymphatic: no nodes Psychiatric: normal affect, A&O x 3 Skin: no rash, normal turgor, cap refill <2 seconds Dx/Plan (1) Acute respiratory failure with hypoxia Code(s): J96.01 - ACUTE RESPIRATORY FAILURE WITH HYPOXIA Status: Acute Comment: abx, nebs, steroids. wena steroids per pulm (2) COPD with acute exacerbation Code(s): J44.1 - CHRONIC OBSTRUCTIVE PULMONARY DISEASE W (ACUTE) EXACERBATION Status: Acute Comment: Will wean steroids, improved aeration, has worsening hyperglycemia with steroids, pulm following, appreciate their assistance (3) Sepsis Code(s): A41.9 - SEPSIS, UNSPECIFIED ORGANISM Status: Acute Qualifiers: Sepsis type: sepsis due to unspecified organism Qualified Code(s): A41.9 - Sepsis, unspecified organism Comment: Patient has bacteremia with strep virdans and i suspect a contaminant, rn recruitment blood culture set neg to date. Sputum Cx positive for Kleb pneumo. Started on vancomycin and Zosyn, will stop those and change ot Cefepime pencing sensitivities. to po soon. Pulm note reviewed, to wena steroids, anticipate D/ C 05/08 - Plan * .
[2017-05-07] MEDS: Fluticasone Propionate Nasal Spray 16 gm Bottle NASAL SCH (12:26)
[2017-05-07] MEDS: Morphine 4 MG/ML Carpuject SLOW IVP PRN ×2 (14:28→22:02)
[2017-05-07] MEDS: lamoTRIgine 25 MG TAB PO SCH (21:52)
[2017-05-07] MEDS: HumaLOG 300 UNITS/3 ML VIAL SC PRN (21:52)
[2017-05-08 04:36] LABS: #Lymphocytes 1.4 thou/uL (1.20-3.40); #Monocytes 0.4 thou/uL (0.11-0.59); #Neutrophils 8.6 thou/uL (1.40-6.50); %Basophils 0.2 % (0.0-1.0); %Eosinophils 0.3 % (0.0-10.0); %Lymphocytes 13.3 % (21.0-51.0); %Monocytes 3.7 % (0.0-10.0); %Neutrophils 82.6 % (42.0-75.0); Hemoglobin 11.7 g/dL (12.0-16.0); Mean Corpuscular HGB CONC 33.5 g/dL (32.0-36.0); Mean Corpuscular Hemoglobin 30.6 pg (27.0-31.0); Mean Corpuscular Volume 91.2 fl (81.0-99.0); Mean Platelet Volume 7.4 fL (7.4-10.4); Platelet Count 310 thou/uL (130-400); RBC Distribution Width 11.9 % (11.5-14.5); Red Blood Cell (RBC) Count 3.84 mill/uL (4.20-5.40); White Blood Cell (WBC) Count 10.4 thou/uL (4.8-10.8)
[2017-05-08 05:01] LABS: Anion Gap 11 mmol/L (10-20); BUN (Urea Nitrogen) 15 mg/dL (9.8-20.1); Calc. Creatinine Clearance 79 mL/min (70-130); Calcium 8.6 mg/dL (7.8-10.44); Carbon Dioxide 30 mmol/L (23-31); Chloride 100 mmol/L (98-107); Estimated GFR-MDRD 89; Glucose 316 mg/dL (80-115); Magnesium 1.8 mg/dL (1.6-2.6); Potassium 3.5 mmol/L (3.5-5.1); Sodium 137 mmol/L (136-145)
[2017-05-08] MEDS: Levothyroxine Sodium 112 MCG TAB PO SCH (05:30)
[2017-05-08] MEDS: Insulin Regular 300 UNITS/3 ML VIAL SC PRN (05:33)
[2017-05-08 08:10] VITALS: BP 140/76; TEMP 97.9
[2017-05-08] MEDS ORDERED: predniSONE 20 MG TAB PO SCH (08:15)
[2017-05-08] MEDS: Enoxaparin Sodium 40 MG/0.4 ML SYRINGE SC SCH (08:42)
[2017-05-08] MEDS: Fluconazole 100 MG TAB PO SCH (08:42)
[2017-05-08] MEDS: Famotidine 20 MG TAB PO SCH (08:43)
[2017-05-08] MEDS: clonazePAM 0.5 MG TAB PO SCH (08:43)
[2017-05-08] MEDS: Gabapentin 300 MG CAP PO SCH (08:43)
[2017-05-08] MEDS: Nystatin/Triamcinolone Cream 15 GM TUBE TOP SCH (08:45)
[2017-05-08] MEDS: Fluticasone Propionate Nasal Spray 16 gm Bottle NASAL SCH (08:45)
[2017-05-08] MEDS: Cefepime 2 GM, Syringe 2.5 ML in Sterile Water 10 ML SLOW IVP SCH (08:45)
[2017-05-08] MEDS: Lisinopril/Hydrochlorothiazide 10 mg/12.5 mg Tablet PO SCH (08:45)
[2017-05-08] MEDS: HYDROcodone/Acetaminophen 10/325 mg Tablet PO PRN (08:54)
[2017-05-08] MEDS: Insulin Detemir 100 UNITS/ML 35 UNITS in Pre-Filled Syringe 1 EACH SC SCH (08:57)
[2017-05-08] MEDS ORDERED: Cefdinir 300 MG CAP PO SCH (09:00)
--- NOTE | 2017-05-08 09:59 | PRG ---
DATE OF SERVICE: 05/08/2017 SUBJECTIVE: The patient is doing better and plans to go home today. OBJECTIVE: VITAL SIGNS: Temperature is 97.9, pulse 101, respirations 20, O2 sat 96%, blood pressure 140/76. HEENT: Unremarkable. NECK: No JVD. LUNGS: Clear without wheezing. CARDIAC: S1 and S2 regular. ABDOMEN: Soft. EXTREMITIES: No edema. LABORATORY DATA: White blood count 10, hematocrit 35, platelet count 310. Sodium 137, potassium 3.5 , chloride 100, CO2 30, BUN 15, creatinine 0.6, glucose 316. ASSESSMENT: 1. Chronic obstructive pulmonary disease with exacerbation. 2. Tobacco abuse. PLAN: She is stable to go home. I would wean her prednisone over a couple of weeks and continue ant ibiotics for 7 days.
[2017-05-08] MEDS: Morphine 4 MG/ML Carpuject SLOW IVP PRN (10:55)
--- NOTE | 2017-05-08 16:20 | DIS ---
PRIMARY CARE PHYSICIAN: None. She did see Dr. Fontenot, but apparently Dr. Fontenot has left town . DATE OF ADMISSION: 05/03/2017 DATE OF DISCHARGE: 05/08/2017 DISCHARGE DIAGNOSES: 1. Acute hypoxemic respiratory failure. 2. Acute exacerbation of chronic obstructive pulmonary disease. 3. Ongoing tobacco abuse. 4. Positive blood culture for viridans Streptococci, contaminant. 5. Klebsiella pneumoniae, community-acquired pneumonia present on admission. 6. Sepsis. 7. Diabetes mellitus type 2. 8. Poorly controlled hypertension. She will continue her home medications. CONSULTATIONS: Pulmonary Critical Care, Dr. Waqar Wells. PROCEDURES: None. HISTORY OF PRESENT ILLNESS: Ms. Grimes is a 62-year-old white female with a history of tobacco a buse and probable COPD, presented to the emergency department for evaluation of shortness of breath. She has had increased shortness of breath started a few days prior to admission, was taking DuoNebs at home, but was really helping and developed chest pain that was more pleuritic in nature, so came t o the ER. A CT angio showed bilateral pneumonia with bronchiolitis. So she was subsequently admitte d requiring 4 liters of oxygen to maintain 98% saturations. HOSPITAL COURSE: The patient was seen and examined by Dr. Gabriel and admitted to the hospital, starte d on q.4 hour DuoNebs and q.2 h. p.r.n., albuterol, Pulmonary was consulted and antibiotics were cont inued. Hemoglobin A1c was 11.1, she was given Levemir and sliding scale insulin. Overnight 05/03 to 05/04, patient clinically improved. She was seen by Pulmonary Critical Care who c ontinued steroids, nebulizer treatments, and antibiotics. She was coughing up some greenish yellow s putum, but largely was stable. By 05/05/2017, the patient was feeling marginally better. White blood cell count was stable at 17,00 0. Labs looked good and she was continued on pneumonia/bronchiectasis treatment. On 05/06, she was doing better. She was able to get up and ambulate around her room with minimal assi stance. Her prednisone taper was begun and her vital signs continued to improve. 05/07/2017, I took the case over, patient was feeling better. She was transitioned to oral antibioti cs and to continue to be watched. Her sputum culture grew out Klebsiella pneumoniae. She had 1 of 2 blood cultures from admission with viridans Streptococci, likely contaminant. She was continued on cefepime. On 05/08/2017, she is feeling much better. She was transitioned from Solu-Medrol to oral prednisone. She has been cautiously due to "allergic" to PREDNISONE. She was also given a dose of Omnicef, whi ch she tolerated well and was stable for discharge with outpatient followup. On the day of discharge , her oxygen saturation was 96% on room air. The patient was seen and examined on the day of discharge. Discharge plan and disposition was discus sed with the patient face to face at the bedside. DISCHARGE MEDICATIONS: 1. Albuterol nebulizer 2.5 mg q.2 hours p.r.n. 2. DuoNebs 3 mL q.4 h. scheduled. 3. Nebulizer and accessories. 4. Omnicef 300 mg p.o. b.i.d. for 7 more days. 5. Prednisone 20 mg p.o. daily to decrease by 5 mg every 4 days until tapered off. 6. Hydrocodone/APAP 10/325 #14 one tablet every 4 hours as needed for severe pain. 7. Metformin 1000 mg p.o. b.i.d. 8. Levothyroxine 112 mcg daily. 9. Lamotrigine 25 mg p.o. at bedtime. 10. Clonazepam 0.5 mg p.o. b.i.d. 11. Gabapentin 600 mg p.o. q.i.d. 12. Lisinopril/HCTZ 1012.5 one tablet daily. 13. Zantac 300 mg daily. 14. Quetiapine 200 mg p.o. at bedtime. FOLLOWUP APPOINTMENTS 1. PCP: She has none, but needs to establish. 2. Pulmonary Critical Care in 2-3 weeks. DISCHARGE DIET: Heart healthy, diabetic recommended. DISCHARGE ACTIVITY: Per cardiopulmonary limits. DISCHARGE CONDITION: The patient's discharge condition is good. DISPOSITION: She will be discharged home via private vehicle.
[2017-05-09] MEDS ORDERED: predniSONE 20 MG TAB PO SCH (08:00)
== END 2017-05-08 12:15 | disposition home or self-care (01) | DRG 871 ==
LOC: ERS 22:45 → 2NO 05-03 04:40 → ONC 05-06 15:59
PROVIDERS: ADMIT Internal Medicine Infectious Disease; ATTEND Internal Medicine Infectious Disease
DX: A41.9 Sepsis, unspecified organism (principal); J96.01 Acute respiratory failure with hypoxia; J15.0 Pneumonia due to Klebsiella pneumoniae; E11.65 Type 2 diabetes mellitus with hyperglycemia; F17.210 Nicotine dependence, cigarettes, uncomplicated; B37.3 Candidiasis of vulva and vagina; J44.1 Chronic obstructive pulmonary disease with (acute) exacerbation; J44.0 Chronic obstructive pulmonary disease with (acute) lower respiratory infection; J84.89 Other specified interstitial pulmonary diseases; E03.9 Hypothyroidism, unspecified; E87.6 Hypokalemia; I10 Essential (primary) hypertension; Z88.1 Allergy status to other antibiotic agents; Z88.5 Allergy status to narcotic agent; Z88.8 Allergy status to other drugs, medicaments and biological substances
CPT/HCPCS: 36415; 36416; 71045; 71275; 80048; 80053; 80202; 82553; 82805; 83036; 83605; 83735; 84484; 85025; 87040; 87070; 87077; 87149; 87186; 87205; 93005; 94640; 94760; 96361; 96365; 96375; J2270; A4216; G8978-GP-CL; G8979-GP-CJ; G8987-GO-CK; G8988-GO-CI; J0456; J0692; J1650; J1815; J2060; J2543; J2920; J3370; J3480; J7050; J7506; J7611; J7620

== ENCOUNTER 2017-06-06 23:42 | Inpatient (IN) | payer MEDICARE ==
[2017-06-07] MEDS ORDERED: Acetaminophen 500 MG TAB ONE (01:09)
[2017-06-07] MEDS ORDERED: Ondansetron ODT 4 MG TAB ONE (01:09)
[2017-06-07 01:38] LABS: Anion Gap 15 mmol/L (10-20); BUN (Urea Nitrogen) 9 mg/dL (9.8-20.1); Calc. Creatinine Clearance 0 mL/min (70-130); Calcium 8.6 mg/dL (7.8-10.44); Carbon Dioxide 27 mmol/L (23-31); Chloride 94 mmol/L (98-107); Estimated GFR-MDRD 86; Glucose 287 mg/dL (80-115); Sodium 133 mmol/L (136-145)
[2017-06-07 01:46] LABS: Potassium 2.9 mmol/L (3.5-5.1)
[2017-06-07] MEDS ORDERED: Potassium Chloride 40 MEQ in Sodium Chloride 0.9% 500 ML IV SCH (02:15)
[2017-06-07] MEDS ORDERED: Potassium Chloride 20 MEQ/100 ML PREMIX BAG ONE (02:25)
[2017-06-07] MEDS ORDERED: hydrALAZINE 20 MG/ML VIAL ONE (02:25)
[2017-06-07] MEDS ORDERED: Acetaminophen 325 MG TAB PO PRN ×2 (06:00→08:58)
[2017-06-07] MEDS ORDERED: Ondansetron ODT 4 MG TAB SL PRN (06:00)
[2017-06-07] MEDS ORDERED: Ondansetron HCl/PF 4 MG/2 ML Vial IVP PRN (06:00)
[2017-06-07] MEDS ORDERED: Sodium Chloride 0.9% 1,000 ML IV SCH (06:00)
[2017-06-07 06:03] VITALS: BMI 19.1
[2017-06-07] MEDS ORDERED: cloNIDine 0.1 MG TAB PO PRN (08:57)
[2017-06-07] MEDS ORDERED: Insulin Regular 300 UNITS/3 ML VIAL SC PRN (08:59)
[2017-06-07] MEDS ORDERED: Dextrose 50% Abboject 50 ML SYRINGE IVP PRN (08:59)
[2017-06-07] MEDS ORDERED: Dextrose 5% in Water 1,000 ML IV PRN (08:59)
[2017-06-07] MEDS: Acetaminophen 325 MG TAB PO PRN (10:12)
[2017-06-07] MEDS: Sodium Chloride 0.9% 1,000 ML IV SCH ×2 (10:12→14:52)
--- NOTE | 2017-06-07 10:32 | HP ---
DATE OF ADMISSION: 06/07/2017 REASON FOR ADMISSION: Nausea and vomiting. HISTORY OF PRESENT ILLNESS: This is a pleasant 62-year-old female seen recently in the clinic where she has a history of COPD, fibromyalgia, diabetes and hypertension. She presents when she began havi ng nausea and vomiting. She presented to the hospital where she was found to have a blood sugar over 300 and hypokalemic with a potassium at 2.9. Thus, she was admitted to hospital for further evaluat ion and treatment. Patient does admit to mid back pain that just started recently. She is known to have a history of fi bromyalgia. The patient does not check her blood sugars at home and is very noncompliant. PAST MEDICAL HISTORY: 1. Hypertension. 2. Type 2 diabetes mellitus. 3. Hypothyroidism. 4. Bipolar disorder. 5. Peripheral neuropathy. 6. Anxiety. 7. DJD. 8. History of pneumonia and sepsis. 9. History of posttraumatic stress disorder. PAST SURGICAL HISTORY: She has a history of cholecystectomy, hysterectomy, , left hip surge ry and gland removed from the left neck. ALLERGIES: None. MEDICATIONS: 1. Metformin 1000 mg b.i.d. 2. Levothyroxine 112 mcg daily. 3. Lamotrigine 25 mg at bedtime. 4. Clonazepam 0.5 mg b.i.d. 5. Neurontin 600 mg 4 times a day. 6. Lisinopril/hydrochlorothiazide 10/12.5 every day. 7. Zantac 300 mg every day. 8. Seroquel 200 mg at bedtime. FAMILY HISTORY: Noncontributory. SOCIAL HISTORY: No alcohol use. She does smoke pot. She smokes half pack of cigarettes per day and has done so for many years. REVIEW OF SYSTEMS: General: This is a gentleman with a fatigue, no fever or chills. HEENT: No dip lopia, amaurosis fugax, tinnitus, sore throat or hoarseness. Cardiovascular: No chest, arm or back pain. Pulmonary: Does have cough, no hemoptysis. Does have shortness of breath on occasion. Gastr ointestinal: See history of present illness. Genitourinary: No dysuria, nocturia, oliguria or poly uria. Endocrine: No polyphagia, polydipsia or heat or cold intolerance. Musculoskeletal: Admits t o arthralgias. No lupus or myopathy. Neurologic: No history of TIA or seizure. All systems are ne gative. PHYSICAL EXAMINATION: GENERAL: Pleasant female who appears to be in acute distress. She is frail. VITAL SIGNS: Her blood pressure is 120/70, pulse 80, respiration rate 18, afebrile. NECK: Supple with no increased JVP or carotid bruit. Carotid had good upstroke, thyromegaly. COR: Few scattered wheezing. ABDOMEN: Soft, nontender with normoactive bowel sounds. No bruit or organomegaly. EXTREMITIES: No edema or cyanosis. Palpable pedal pulses. SKIN: There is no evidence of ulcers, lesion, or rash. NEUROLOGIC: She is awake, alert, and oriented to person, place, and time. LABORATORY DATA: Sodium was 133. Her potassium is 2.9. Her blood sugar was 300 when she came in, n ow it is less than 300. ASSESSMENT: 1. Chronic obstructive pulmonary disease. 2. Fibromyalgia. 3. Back pain. 4. Bipolar. 5. Posttraumatic stress disorder. 6. Diabetes. 7. Noncompliance. 8. History of drug use. 9. History of tobacco use. PLAN: 1. The patient will be admitted where IV fluids will be continued. We will also follow up with a CB C and CMP in the morning. We will resume her home medications. We will give antiemetic as needed. 2. We will start clear liquid diet and advance as tolerated. 3. The patient verbalized understanding. All questions answered to satisfaction. This is COLBY Lujan-Alexa dictating for Dr. Reagan Sullivan.
[2017-06-07] MEDS: traMADol HCl 50 MG TAB PO PRN (13:08)
[2017-06-07] MEDS: Gabapentin 300 MG CAP PO SCH ×3 (13:08→20:42)
[2017-06-07] MEDS: Levothyroxine Sodium 112 MCG TAB PO SCH ×2 (15:47→17:10)
[2017-06-07] MEDS: Lisinopril/Hydrochlorothiazide 10 mg/12.5 mg Tablet PO SCH ×2 (15:48→17:10)
[2017-06-07] MEDS: Insulin Regular 300 UNITS/3 ML VIAL SC PRN (16:57)
[2017-06-07] MEDS: metFORMIN 500 MG TAB PO SCH (17:06)
[2017-06-07 18:16] LABS: Potassium 2.6 mmol/L (3.5-5.1)
[2017-06-07] MEDS ORDERED: Potassium Chloride 20 MEQ in Premix Bag 1 BAG IVPB SCH (18:30)
[2017-06-07] MEDS ORDERED: Potassium Chloride 20 MEQ in Premix Bag 100 BAG IVPB SCH (18:30)
[2017-06-07 23:29] LABS: #Basophils 0.1 thou/uL (0.0-0.2); #Eosinphils 0.1 thou/uL (0.0-0.7); #Lymphocytes 4.3 thou/uL (1.20-3.40); #Monocytes 0.8 thou/uL (0.11-0.59); #Neutrophils 4.7 thou/uL (1.40-6.50); %Basophils 0.7 % (0.0-1.0); %Eosinophils 1.3 % (0.0-10.0); %Lymphocytes 43.5 % (21.0-51.0); %Monocytes 7.8 % (0.0-10.0); %Neutrophils 46.8 % (42.0-75.0); Hemoglobin 12.8 g/dL (12.0-16.0); Mean Corpuscular HGB CONC 33.2 g/dL (32.0-36.0); Mean Corpuscular Hemoglobin 30.1 pg (27.0-31.0); Mean Corpuscular Volume 90.5 fl (81.0-99.0); Mean Platelet Volume 8.1 fL (7.4-10.4); Platelet Count 167 thou/uL (130-400); RBC Distribution Width 13.2 % (11.5-14.5); Red Blood Cell (RBC) Count 4.24 mill/uL (4.20-5.40)
--- NOTE | 2017-06-07 23:35 | CT ---
CT HEAD NONCONTRAST 06/07/17 HISTORY: Fall. Head injury. FINDINGS: There is no evidence of acute intracranial hemorrhage or infarct. The ventricles appear normal in siz e, shape and position. There is no mass effect or shift of midline structures. The visualized paranas al sinuses remain well aerated. Large laceration is apparent over the left frontal calvarium. IMPRESSION: No acute intracranial abnormalities are demonstrated. POS: [facility]
--- NOTE | 2017-06-07 23:42 | CT ---
CT CERVICAL SPINE NONCONTRAST 06/07/17 HISTORY: Fall. Neck injury. FINDINGS: Vertebral body heights and alignment are maintained. Disc space narrowing is most pronounced at the c ervicothoracic junction. There is no acute fracture or dislocation. IMPRESSION: No acute osseous abnormalities are demonstrated. POS: [facility]
[2017-06-07] MEDS ORDERED: Bupivacaine/Epinephrine 0.25% 30 ML VIAL ONE (23:45)
--- NOTE | 2017-06-07 23:46 | RAD ---
LEFT SHOULDER TWO VIEWS 06/07/17 HISTORY: Fall. Left arm injury. FINDINGS: Acromioclavicular and glenohumeral alignment are maintained. No acute fracture or dislocation. IMPRESSION: No acute osseous abnormalities are demonstrated. POS: [facility]
--- NOTE | 2017-06-07 23:47 | RAD ---
LEFT KNEE TWO VIEWS 06/07/17 HISTORY: Fall. Left knee injury. FINDINGS: Joint spaces are preserved. No acute fracture, dislocation, or fluid distention of the joint capsule. IMPRESSION: No acute osseous abnormalities are demonstrated. POS: [facility]
--- NOTE | 2017-06-07 23:48 | RAD ---
LEFT ANKLE TWO VIEWS 06/07/17 HISTORY: Fall. Left ankle injury. FINDINGS: There is minimal posterior displacement of an oblique distal fibular fracture at the level of the ank le mortise. Ankle mortise is otherwise intact. IMPRESSION: Left lateral malleolus fracture. Hernandez class B. POS: [facility]
[2017-06-07 23:49] LABS: ALT (SGPT) 8 U/L (8-55); AST (SGOT) 15 U/L (5-34); Albumin 3.1 g/dL (3.4-4.8); Alkaline Phosphatase 91 U/L (40-150); Anion Gap 11 mmol/L (10-20); BUN (Urea Nitrogen) 8 mg/dL (9.8-20.1); Bilirubin, Total 1.1 mg/dL (0.2-1.2); Calc. Creatinine Clearance 76 mL/min (70-130); Calcium 8.3 mg/dL (7.8-10.44); Carbon Dioxide 22 mmol/L (23-31); Chloride 103 mmol/L (98-107); Estimated GFR-MDRD Greater than 90; Globulin 2.1 g/dL (2.4-3.5); Glucose 187 mg/dL (80-115); Potassium 3.4 mmol/L (3.5-5.1); Protein, Total 5.2 g/dL (6.0-8.3); Sodium 133 mmol/L (136-145)
--- NOTE | 2017-06-07 23:49 | PDOC.EVN ---
Event Note - Event Note Event Note: Code Karel called after patient fell in her room striking her head on the ground sustaining large frontal laceration with LOC. Admitted initially for DKA which has since resolved. Pt awake, crying and yelling on the floor. Pt moved to bed and exam showed a large R frontal laceration extending from the hairline through the medial R eyebrow, hemostatic currently, no globe involvement. Moves all extremities, VS reviewed with BP in the 80's systolic, HR 70's, Glucose 120's. LCTAB, CV S1, S2 Plan for CT Brain to r/o intracranial process Consulted Plastic Surgery for assistance in primary closure due to the involvement of laceration through the eyebrow Check X-rays of L shoulder, knee and ankle to r/o fx IVF NS 1L bolus Labs: CMP, CBC Local 4x4 dressings, Kerlex to forehead Pt's son notified of incident and will be contacting his mother. PCP notified of event. Total critical care time: 30min
[2017-06-08] MEDS: Sodium Chloride 0.9% 1,000 ML IV SCH ×5 (02:19→23:53)
[2017-06-08 04:20] LABS: Bilirubin Negative (Negative); Blood, Urine Negative (Negative); Clarity CLEAR (Clear); Glucose, Urine (Dipstick) 500 mg/dL (Negative); Leukocyte Negative (Negative); Nitrite Negative (Negative); Protein, Urine (Dipstick) Negative (Neg-Trace); Specific Gravity, Urine 1.015 (1.002-1.036); pH, Urine 7.5 (5.0-9.0)
[2017-06-08 04:23] LABS: Bacteria/HPF None Seen HPF (None Seen); Hyaline Casts/LPF 0-3 HYALINE CAST LPF (0-3 Hyaline); Pathc Cast-AUWi Flag 0.13 (0-2.49); RBC/HPF 0-3 HPF (0-3); Squamous Epithelial 0-3 HPF (0-3); WBC/HPF 0-3 HPF (0-3)
[2017-06-08 05:12] LABS: #Eosinphils 0.1 thou/uL (0.0-0.7); #Lymphocytes 2.9 thou/uL (1.20-3.40); #Monocytes 0.7 thou/uL (0.11-0.59); #Neutrophils 6.9 thou/uL (1.40-6.50); %Basophils 0.4 % (0.0-1.0); %Eosinophils 0.7 % (0.0-10.0); %Lymphocytes 27.4 % (21.0-51.0); %Monocytes 6.2 % (0.0-10.0); %Neutrophils 65.4 % (42.0-75.0); Hemoglobin 13.4 g/dL (12.0-16.0); Mean Corpuscular HGB CONC 34.1 g/dL (32.0-36.0); Mean Corpuscular Hemoglobin 30.5 pg (27.0-31.0); Mean Corpuscular Volume 89.3 fl (81.0-99.0); Platelet Count 163 thou/uL (130-400); RBC Distribution Width 13.1 % (11.5-14.5); Red Blood Cell (RBC) Count 4.39 mill/uL (4.20-5.40); White Blood Cell (WBC) Count 10.6 thou/uL (4.8-10.8)
[2017-06-08 05:25] LABS: ALT (SGPT) 9 U/L (8-55); AST (SGOT) 14 U/L (5-34); Albumin 3.3 g/dL (3.4-4.8); Alkaline Phosphatase 94 U/L (40-150); Anion Gap 12 mmol/L (10-20); BUN (Urea Nitrogen) 9 mg/dL (9.8-20.1); Calc. Creatinine Clearance 71 mL/min (70-130); Calcium 8.5 mg/dL (7.8-10.44); Carbon Dioxide 23 mmol/L (23-31); Chloride 103 mmol/L (98-107); Estimated GFR-MDRD 88; Globulin 2.1 g/dL (2.4-3.5); Glucose 214 mg/dL (80-115); Potassium 3.4 mmol/L (3.5-5.1); Protein, Total 5.4 g/dL (6.0-8.3); Sodium 135 mmol/L (136-145)
[2017-06-08] MEDS: Levothyroxine Sodium 112 MCG TAB PO SCH (05:50)
[2017-06-08] MEDS: Acetaminophen 325 MG TAB PO PRN (07:23)
[2017-06-08] MEDS: traMADol HCl 50 MG TAB PO PRN (07:24)
[2017-06-08] MEDS: Ondansetron HCl/PF 4 MG/2 ML Vial IVP PRN ×2 (07:27→19:59)
--- NOTE | 2017-06-08 08:25 | CT ---
PRELIMINARY REPORT/[facility]/EMERGENCY AFTER HOURS PROCEDURE: EXAM: CT Head Without Intravenous Contrast CLINICAL HISTORY: 62 years old, female; Condition or disease; Other: Head trauma; Patient HX: Head trauma, f/u exam TECHNIQUE: Axial computed tomography images of the head/brain without intravenous contrast. COMPARISON: CT Brain WO Con 2017-06-07 23:25 FINDINGS: Brain: Unremarkable. No hemorrhage. No significant white matter disease. No edema. Ventricles: Unremarkable. No ventriculomegaly. Bones/joints: Unremarkable. No acute fracture. Soft tissues: Mild soft tissue swelling with subcutaneous emphysema is noted in the frontal soft tiss ues. Mild subcutaneous emphysema is noted in the preseptal soft tissues on the right. Vasculature: Vertebral artery calcifications are seen. Sinuses: Unremarkable as visualized. No acute sinusitis. Mastoid air cells: Unremarkable as visualized. No mastoid effusion. IMPRESSION: 1. No acute findings. 2. Mild soft tissue swelling with subcutaneous emphysema in the frontal soft tissues and the presepta l soft tissues of the right orbit. Thank you for allowing us to participate in the care of your patient. Dictated and Authenticated by: Tracy Lora MD 06/08/2017 6:10 AM Central Time ([place] & [place]) FINAL REPORT HEAD CT WITHOUT CONTRAST: DATE: 06/08/17. COMPARISON: 06/07/17. HISTORY: Head trauma. FINDINGS: I agree with the preliminary [facility] report. There is small volume subcutaneous emphysema and soft ti ssue swelling in the frontal region. There is a stable area of hypodensity in the frontal region on the right measuring 2.1 cm in transver se dimension, unchanged when compared to the 06/07/17 exam. There is no intracranial hemorrhage, midline shift, or mass effect. IMPRESSION: 1. No intracranial hemorrhage or displaced calvarial fracture. Small volume frontal subcutaneous em physema, consistent with recent trauma. 2. Wedge-shaped peripheral area of hypodensity is noted in the right frontal region, unchanged when compared to the 06/07/17 exam. No further/older prior imaging is available. This area of hypodensity is nonspecific. This may simply represent encephalomalacia on the basis of prior insult, but acute/s ubacute infarction or intracranial lesion cannot be excluded. Thus, further assessment via brain MRI with and without contrast advised. CODE T POS: [facility]
[2017-06-08] MEDS ORDERED: HYDROcodone/Acetaminophen 5/325 mg Tablet PO PRN (09:08)
--- NOTE | 2017-06-08 09:10 | PRG ---
DATE OF SERVICE: 06/08/2017 SUBJECTIVE: They called a code green yesterday on the 4th floor on this patient as they found her on the floor after she had fallen. The nurse stated I did not any need to come up there because Dr. Jose rm was already consulted as she had a laceration on her head. Dr. Nick wanted to move her to [facility] on ly for closer observation. She was alert and oriented at that time that he saw her; however, she did become a little lethargic during the night. I repeated the CAT scan originally was normal and I ord ered another CAT scan just to make sure. I believe it was from the Seroquel the 200 mg that she take s at home that made her lethargic as today she is totally with it. The patient states at home, she h as had numerous times where she does not know if she passes out, but she will wake up on the floor. She states she has been doing this for a long time and she is worried because she lives alone. Unfor tunately, she have as a left lateral fracture from her fall and again she did have a laceration of he r forehead. PHYSICAL EXAMINATION: GENERAL: The patient is awake, alert and oriented to person, place and time. VITAL SIGNS: Her blood pressure 140/60, pulse 100, respiration 20, she is afebrile. NECK: Supple. No JVD or carotid bruit. Carotids had good upstroke with no thyromegaly. CARDIOVASCULAR: Regular rate and rhythm. CHEST: Symmetrical. Clear to auscultation and percussion. ABDOMEN: Soft, nontender with normoactive bowel sounds. There is no bruit or organomegaly. EXTREMITIES: No edema or cyanosis. Her left ankle is swollen and tender. She has a laceration on h er forehead. NEUROLOGIC: She is awake, alert, and oriented to person, place, and time. LABORATORY: Potassium is 3.4. Her CBC is normal. Her CT of the head that she had this morning is p ending. ASSESSMENT: 1. Fall with laceration to the forehead and fractured left ankle. 2. Possible syncope. 3. Posttraumatic stress disorder. 4. Depression. 5. Anxiety. 6. Diabetes. 7. Fibromyalgia. 8. Hypokalemia. 9. Multiple medical problems. PLAN: The patient's tramadol will be discontinued. She will be started on Leivasy. Ortho has already been consulted. We will make the patient inpatient. We will also change her Seroquel to 100 mg at night. I will also order an echocardiogram and carotid Doppler and also begin potassium by mouth and follow up with the lab in the morning. The patient verbalized understanding. All questions answere d to her satisfaction.
[2017-06-08] MEDS: Gabapentin 300 MG CAP PO SCH ×4 (09:29→21:47)
[2017-06-08] MEDS: Lisinopril/Hydrochlorothiazide 10 mg/12.5 mg Tablet PO SCH ×2 (09:29→09:42)
[2017-06-08] MEDS: Potassium Chloride 20 MEQ TAB PO SCH ×2 (09:32→21:47)
[2017-06-08] MEDS: metFORMIN 500 MG TAB PO SCH ×2 (09:33→17:53)
--- NOTE | 2017-06-08 13:43 | CON ---
DATE OF CONSULTATION: 06/07/2017, last night. CHIEF COMPLAINT: Facial laceration. HISTORY OF PRESENT ILLNESS: The patient is a 62-year-old female admitted for nausea and vomiting. S he is a diabetic and had multiple lab abnormalities. She told me that she had got out of bed on arou nd, go to bathroom and fell. By report, she may have hit the door jamb. PAST MEDICAL HISTORY: 1. Hypertension. 2. Type 2 diabetes. 3. Hypothyroid. 4. Bipolar. 5. Peripheral neuropathy. 6. Anxiety. 7. Degenerative joint disease. 8. History of pneumonia and sepsis. 9. Post-traumatic stress disorder. PAST SURGICAL HISTORY: Cholecystectomy, hysterectomy, , left hip surgery, and gland removed from the neck. ALLERGIES: None. MEDICATIONS: Reviewed in the chart. IMAGING: Negative CT scan of the brain and neck. PHYSICAL EXAMINATION: GENERAL: Well-nourished, thin female, who is in no apparent distress, but answers questions appropri ately. She is alert and oriented. VITAL SIGNS: Her blood pressure, which had been little over in the ER is normotensive 120/70. NECK: No tenderness. HEENT: Normocephalic. There is a 14 cm laceration extending from below her right medial eyebrow ext ending up through the entire forehead and into the hair. EXTREMITIES: No clubbing, edema, or cyanosis. ASSESSMENT: Open wound of the forehead. PLAN: Repair. BEDSIDE PROCEDURE NOTE: Following induction of adequate anesthesia, the patient was prepped and drap ed in the usual sterile fashion in the supine position. Local anesthesia was achieved with 0.25% Mar lyudmila with epinephrine. After the wound had been thoroughly irrigated and cleaned, a layered repair was achieved, repairing the muscular layer within the deep dermal layers with interrupted 4-0 Monocry l. The epidermal edges were closed with a running 4-0 Monocryl suture. The length of the closure wa s 14 cm. The wound care instructions were given to the nurse of adding soap and water wash and then Vaseline jelly applied to the wound. The patient tolerated the procedure well.
[2017-06-08] MEDS: HYDROcodone/Acetaminophen 5/325 mg Tablet PO PRN ×2 (14:13→21:46)
[2017-06-08] MEDS ORDERED: Potassium Chloride 20 MEQ TAB PO SCH (14:30)
[2017-06-08] MEDS ORDERED: Sodium Chloride 0.9% 1,000 ML IV SCH (14:30)
[2017-06-08] MEDS ORDERED: Lactated Ringer's 1,000 ML IV SCH (14:30)
--- NOTE | 2017-06-08 14:43 | CON ---
DATE OF CONSULTATION: 06/08/2017 REQUESTING PHYSICIAN: Dr. Jamil. CONSULTING PHYSICIAN: Dr. Balta Pace. BRIEF HISTORY: This is a 62-year-old female who has been admitted for diabetic ketoacidosis, who had an event last night in the hospital when she got up to use the restroom and fell. She sustained a l aceration to her forehead extending into her scalp and her eyebrow. She also complains of left leg p ain including left ankle and left knee. X-rays were obtained which revealed a left lateral malleolus fracture. No acute findings were found on the left knee. Orthopedic service has been consulted due to these injuries. The patient states that she has pain along the medial aspect of her knee today. She also reports lateral left-sided ankle pain and swelling. She denies any other orthopedic compla ints at this time. PHYSICAL EXAMINATION: VITAL SIGNS: Temperature of 98.4, pulse of 105, respiratory rate of 18, and blood pressure of 144/68 . GENERAL: The patient is awake and alert. She is in mild distress secondary to pain and anxiety. EXTREMITIES: Evaluation of the left lower extremity shows pain at the medial aspect of the knee that is tender to palpation. The patient has difficulty with flexion and extension secondary to pain. N o knee effusion is palpable. No ecchymosis or skin lacerations noted to the knee. With regard to th e left ankle, the patient has ecchymosis and swelling at the lateral aspect of the ankle. This area is tender to palpation. She has no tenderness to palpation along the medial side of the ankle. Dors serenity pedis pulses 2+. Distal neurovascular status is intact in the foot. Sensation intact. Patient is able to plantar flex and dorsiflex slightly which is limited secondary to pain. No calf tenderne ss or erythema noted on exam. IMAGING: X-rays obtained on 06/07/2017 including an ankle x-ray show evidence of a lateral malleolus fracture which is a Hernandez class B. This is minimally displaced. There is also a knee x-ray which s hows no acute findings. ASSESSMENT AND PLAN: Status post fall with lateral malleolus fracture and knee contusion. No surgic al intervention is warranted. The patient's fracture can be treated conservatively in a boot. She w ill be 50% weightbearing to the left lower extremity. We will have physical therapy work with her on crutch or walker training. She can follow up in our office in 10-14 days when she is discharged. Alexa mcnamara pain management per Medicine Team.
--- NOTE | 2017-06-08 15:34 | ULT ---
CAROTID ULTRASOUND WITH DANIEL SCALE AND DOPPLER DUPLEX COLOR FLOW IMAGING SPECTRAL ANALYSIS PERFORMED: 06/08/17 CLINICAL INDICATION: Dizziness, fall. FINDINGS: There is scattered atherosclerotic plaque, mild to moderate in degree of the carotid arteries. PEAK SYSTOLIC VELOCITY (CM/S): Right CCA 81 Left CCA 62 Right ICA 60 Left ICA 84 There is antegrade flow within the visualized bilateral vertebral arteries. IMPRESSION: 1. No hemodynamically significant stenosis of the right internal carotid artery. 2. No hemodynamically significant stenosis of the left internal carotid artery. POS: [facility]
--- NOTE | 2017-06-08 19:30 | CON ---
DATE OF CONSULTATION: 06/08/2017 SERVICE: Pulmonary Medicine. REASON FOR CONSULTATION: IMCU patient. HISTORY OF PRESENT ILLNESS: The patient is a 62-year-old white female. She was in her usual state of health when she started having elevated blood sugars that were out of control. She had nausea and vomiting, low potassium. She was brought to the Emergency Department and initially she was in observation because she did not meet inpatient criteria. In the observation unit, she stood up and felt immediately dizzy. She fell over, getting a large laceration on her head, and injured her left ankle. It appears that this is fractured. She immediately regained consciousness. Upon hitting the floor, and returned to her usual state of health. She currently denies any fevers, chills, nausea or vomiting. She has multiple complaints of discomforts, although they are under decent control right now. She denies any recent fevers, chills, or infectious symptoms. PAST MEDICAL HISTORY: 1. Hypertension. 2. Dyslipidemia. 3. Type 2 diabetes mellitus. 4. Hypothyroidism. 5. Peripheral neuropathy. 6. Anxiety disorder. 7. Bipolar disorder. 8. Degenerative joint disease. 9. Posttraumatic stress disorder. PAST SURGICAL HISTORY: 1. Cholecystectomy. 2. Hysterectomy. 3. section. 4. Left hip surgery secondary to fall and subsequent fracture. 5. Excision of the gland from left neck. ALLERGIES: No known drug allergies. MEDICATIONS: List of inpatient medications was reviewed. I gave her a liter of fluid as clinically she is a little dry. FAMILY HISTORY: Noncontributory. SOCIAL HISTORY: She uses marijuana. She smokes half pack of cigarettes a day and has a greater than [id number] history of smoking rather. She has no alcohol or other illicit drug use. She has never used any IV drugs. She denies any exposures to chemicals, dust asbestos or tuberculosis that are known to hurt the lungs. REVIEW OF SYSTEMS: General, head, ears, eyes, nose, throat, cardiovascular, respiratory, GI, , musculoskeletal, neurologic and skin is negative except mentioned in the HPI. PHYSICAL EXAMINATION: VITAL SIGNS: Afebrile, pulse 109, blood pressure 146/67, respirations 12, saturation 100% on room air. GENERAL: The patient is awake, alert, no apparent distress. LUNGS: Excellent air entry with no prolonged expiratory phase, wheezing, rhonchi or crackles. HEART: Normal rate, regular. ABDOMEN: Soft, nontender, nondistended. Bowel sounds are positive. MUSCULOSKELETAL: No cyanosis or clubbing. SKIN: Tenting is present throughout. GENITOURINARY: No Rosales. NEUROLOGIC: Grossly nonfocal. LABORATORY DATA: WBC 10.6, hemoglobin 13.4, platelets 163,000. Sodium 135 and up trending. Potassium 3.4. Basic metabolic profile, liver function studies are otherwise unremarkable. Blood sugar 249. Urinalysis is unremarkable except for ketones and glucose. Beta hydroxybutyric acid is marginally elevated. IMAGIN. CT of the brain demonstrates no acute cardiopulmonary abnormality. 2. CT of the C-spine demonstrates no acute cervical abnormality. 3. X-ray of the knee demonstrates no subluxation or osseous deformities. 4. X-ray of the shoulder demonstrates no acute bony abnormality. 5. Ankle x-ray demonstrates lateral malleolus fracture, Hernandez class B. 6. Repeat CT of the brain demonstrates no evidence of intracranial hemorrhage. 7. Carotid Doppler, pending. ASSESSMENT: 1. Type 2 diabetes mellitus. 2. Dehydration, moderate. 3. Syncope. 4. Orthostatic hypotension. 5. Fall from standing with associated laceration to scalp, and ankle fracture. PLAN: The patient is clinically dry. I gave her a liter of fluids. Once she got a boot in place, we did orthostatics. She did have a positive tilt. Her potassium is low and will be replaced. We can transition the patient out of the IMCU to the telemetry unit at this time. Pulmonary Critical Care will continue to follow if the patient remains in this location. 70 minutes have been devoted to this patient in various activities. I personally reviewed all imaging studies and laboratory data noted within this document. For greater than fifty percent of this time, I was interacting with the patient at the bedside or coordinating care with the care team. For the remainder of the time I was immediately available to the patient in the hospital unit. CHRISSY
[2017-06-08] MEDS ORDERED: Labetalol HCl 100 MG/20 ML VIAL SLOW IVP PRN (20:39)
[2017-06-08] MEDS ORDERED: Ondansetron HCl/PF 4 MG/2 ML Vial IVP PRN (22:24)
[2017-06-08] MEDS ORDERED: Ondansetron HCl/PF 4 MG/2 ML Vial IVP SCH (22:45)
[2017-06-09] MEDS: Sodium Chloride 0.9% 1,000 ML IV SCH ×4 (03:31→22:21)
[2017-06-09 05:18] LABS: #Eosinphils 0.1 thou/uL (0.0-0.7); #Lymphocytes 2.8 thou/uL (1.20-3.40); #Monocytes 0.5 thou/uL (0.11-0.59); #Neutrophils 6.8 thou/uL (1.40-6.50); %Basophils 0.1 % (0.0-1.0); %Eosinophils 0.9 % (0.0-10.0); %Lymphocytes 27.5 % (21.0-51.0); %Monocytes 4.9 % (0.0-10.0); %Neutrophils 66.6 % (42.0-75.0); Hemoglobin 11.8 g/dL (12.0-16.0); Mean Corpuscular HGB CONC 34.5 g/dL (32.0-36.0); Mean Corpuscular Hemoglobin 30.3 pg (27.0-31.0); Mean Corpuscular Volume 87.6 fl (81.0-99.0); Mean Platelet Volume 8.3 fL (7.4-10.4); Platelet Count 132 thou/uL (130-400); RBC Distribution Width 12.9 % (11.5-14.5); Red Blood Cell (RBC) Count 3.89 mill/uL (4.20-5.40); White Blood Cell (WBC) Count 10.1 thou/uL (4.8-10.8)
[2017-06-09] MEDS: Levothyroxine Sodium 112 MCG TAB PO SCH (05:43)
[2017-06-09] MEDS: HYDROcodone/Acetaminophen 5/325 mg Tablet PO PRN ×4 (05:43→22:27)
[2017-06-09 05:46] LABS: Anion Gap 10 mmol/L (10-20); BUN (Urea Nitrogen) 5 mg/dL (9.8-20.1); Calc. Creatinine Clearance 81 mL/min (70-130); Calcium 7.7 mg/dL (7.8-10.44); Carbon Dioxide 23 mmol/L (23-31); Chloride 101 mmol/L (98-107); Estimated GFR-MDRD Greater than 90; Glucose 228 mg/dL (80-115); Potassium 3.1 mmol/L (3.5-5.1); Sodium 131 mmol/L (136-145)
[2017-06-09] MEDS: Gabapentin 300 MG CAP PO SCH ×5 (05:52→20:03)
[2017-06-09] MEDS: Potassium Chloride 20 MEQ TAB PO SCH ×4 (05:53→16:15)
[2017-06-09] MEDS: Metoclopramide HCl 10 MG TAB PO SCH ×4 (08:25→20:04)
[2017-06-09] MEDS: metFORMIN 500 MG TAB PO SCH ×2 (08:25→16:15)
[2017-06-09] MEDS: Lisinopril/Hydrochlorothiazide 10 mg/12.5 mg Tablet PO SCH (08:26)
--- NOTE | 2017-06-09 15:16 | PRG ---
DATE OF SERVICE: 06/09/2017 This is Laura Mulligan DIRECTOR DIABETES-C dictating progress note for Reagan Sullivan M.D. SUBJECTIVE: The patient had a good night. After I have increased her Zofran to 8 mg, before that sh onel was having a lot of nausea and vomiting, but states she is much better after she got more Zofran. Her appetite is poor, but she is drinking okay. The patient does feel like she can go home as her gr anddaughter and son are trying to arrange some help, but she does think she does also need home healt h. The patient did have a carotid Doppler yesterday secondary to syncope and this was unremarkable. Her echocardiogram also was done yesterday, this showed normal EF to be 60%-65%; otherwise unremarka ble. PHYSICAL EXAMINATION: GENERAL: The patient is awake, alert, and oriented to person, place and time. There is no family he re. VITAL SIGNS: There is no blood pressure done this morning. Last night, it was high. She does have laceration on her head that is sutured. Her eye has much ecchymosis around the right eye. COR: Regular rate and rhythm with no murmur, S3, S4, or thrill. CHEST: Symmetrical. Clear to auscultation and percussion. ABDOMEN: Soft, nontender with normal bowel sounds. No organomegaly. EXTREMITIES: No edema or cyanosis. She does have a boot on her left ankle. NEUROLOGIC: She is awake, alert, and oriented to person, place, and time. ASSESSMENT: 1. Fall with a left foot fracture and laceration to the forehead. 2. Diabetes. 3. Syncope. 4. Fibromyalgia. 5. Posttraumatic stress disorder. 6. Hypokalemia with potassium still low at 3.1. 7. Multiple medical problems. 8. Hypertension. PLAN: We will change her Prinzide dose. We will also replace her potassium again since her nausea a nd vomiting has improved. We will also ask physical therapy to work with patient, even though she do es have a on her left ankle in preparation of going home soon. We will turn her IV fluids down today and hopefully discontinue those tomorrow. We will also follow up with lab in the morning as mary tolliver
[2017-06-09] MEDS: Insulin Regular 300 UNITS/3 ML VIAL SC PRN (17:53)
[2017-06-09] MEDS ORDERED: Potassium Chloride 20 MEQ TAB PO SCH (23:45)
--- NOTE | 2017-06-10 00:03 | PRG ---
DATE OF SERVICE: 06/09/2017 SERVICE: Pulmonary Medicine. INTERVAL HISTORY: The patient is doing fine from a cardiovascular and respiratory standpoint. She d enies any current shortness of breath, fevers, or chills. She has a little bit of discomfort on her forehead and ankle. That being said, she is able to work with physical therapy. She has not had any additional elements or any additional episodes of lightheadedness. Apparently, on telemetry, she ex perienced a very brief episode of asymptomatic tachycardia. Otherwise, there has been no interval ch wilder to her condition. PHYSICAL EXAMINATION: VITAL SIGNS: Afebrile, pulse 99, blood pressure 198/90, respirations 18, saturation 96% on room air. GENERAL: The patient is awake and alert, in no apparent distress. LUNGS: Excellent air entry with no prolonged expiratory phase or wheezing. HEART: Normal rate, regular. ABDOMEN: Soft, nontender, nondistended. Bowel sounds are positive. MUSCULOSKELETAL: No cyanosis or clubbing. No pitting in the bilateral lower extremities. NEUROLOGIC: Grossly nonfocal. LABORATORY DATA: WBC 10.1, hemoglobin 11.8, platelets 132,000. Potassium 3.1, sodium 131. Basic me tabolic profile is otherwise unremarkable. ASSESSMENT: 1. Orthostatic hypotension. 2. Dehydration, moderate. 3. Gastroenteritis, suspected. 4. Syncope. 5. Fall from standing height with associated laceration of scalp and ankle fracture. 6. Type 2 diabetes mellitus. PLAN: The patient's orthostasis has resolved. Low potassium persist. We will replace that today, b ut truth to be told, she has no further requirements for inpatient Pulmonary Critical Care opinion. As such, we will sign off. The potassium will be repeated in the morning. Please call with addition al questions or concerns moving forward.
--- NOTE | 2017-06-10 01:06 | ADD-CON ---
ADDENDUM DATE OF CONSULTATION: 06/09/2017 INDICATION FOR CONSULTATION: This is a 62-year-old female with episode of syncope or near syncope wi th falls and orthostatic hypotension with multiple other medical problems and now she had an episode of second degree heart block type 1, which is Wenckebach or possibly short episode of second degree h eart block type 2. She has multiple other medical problems such as hypertension, dyslipidemia, diabe mitchell, anxiety, bipolar disorder. Please refer to notes already dictated by the nurse practitioner Yovany fenton. This is a very pleasant 62-year-old female, who had been doing relatively well until she present ed to the hospital with nausea, vomiting, dehydration, and hypokalemia. She was on observation, but then apparently had a dizzy spell, lightheadedness, and fell and apparently fractured her left ankle as well as a large laceration to the frontal area of on the right-sided facial frontal area and the s calp area, which has now required less suturing. Once she hit the floor, apparently she then recover ed her consciousness and said that she actually realized that she was falling, but did not have anyth ing to hold onto when she fell. She says she has been having episodes of dizziness or lightheadednes s for about a year now, but today, she actually did have some ambulation and did not have any episode s of dizziness or any other irregularities in the rhythm, but then later on did have an episode of th e second degree heart block type 1. At that time, she was asymptomatic. This is only just for a few seconds and then she returned back to her sinus rhythm. She denies any previous cardiac history alethea pite having multiple risk factors of coronary artery disease. Past medical history, social history, review of systems, allergies and medications, please refer to t marge notes already dictated. PHYSICAL EXAMINATION: GENERAL: Reveals a very pleasant female, who is in no acute distress. She is alert and oriented. S he does have a well-healed. She has a large incision, which has been sutured on the right femoral ar ea extending from the right eye area all the way up into the scalp into the hairline and has some ecc hymosis around the right orbital area. VITAL SIGNS: Her blood pressure last taken at 4:00 this afternoon is 110/57, earlier today was 130/5 6. She actually has been very hypotensive since being in the hospital, but also has some hypertensio n and blood pressure was high as yesterday last night was 198/95 and appears that she does have some orthostasis, but these were not clear as to how they were obtained. We will need to repeat these to determine exactly how orthostatic she may be. This could have been due to the dehydration with her a ssociated nausea and vomiting. Otherwise, vital signs are otherwise stable. CHEST: Clear to auscultation without rales, rhonchi, or wheezing. CARDIOVASCULAR: Exam reveals a regular rate and rhythm at this time. She has normal S1 and S2, no S 3, S4 was noted. There were no significant murmurs, heaves, thrills, bruits or rubs. ABDOMEN: Soft and nontender. Positive bowel sounds are present. EXTREMITIES: Show no clubbing or cyanosis. She has a walking cast on the left lower extremity from the knee to the foot involving the foot also. NEUROLOGIC: She appears to be intact. LABORATORY DATA: Please refer the notes dictated by the nurse practitioner, but she does have signif icant elevation of the blood glucose at 273. This is being adjusted by the primary care physician. IMPRESSION: 1. Likely orthostatic hypotension associated with some degree of dehydration due to her nausea. 2. History of syncope or near syncope with a fall, which suffered in the a large laceration to the r ight frontal area of her scalp and also left ankle fracture also we will continue to monitor very car efully. She will need to be monitored for the orthostatic hypotension. Once she becomes volume euvo lemic again, then we can certainly decide whether or not she still remains orthostatic. This may hav e something to do with her diabetes; however, and she may be developing a neuropathy. 3. History of diabetes, which is being dealt with by the primary care service. The blood sugars are still inadequately control and primary care service will continue to monitor this. 4. Hypokalemia. This appears to have been resolved now. 5. History of chronic obstructive pulmonary disease in the form of asthma. We will see whether or n ot she tolerates a low dose of beta blockers. 6. History of tobacco abuse in the past, but she still smokes until she was admitted. 7. Diabetic neuropathy. 8. Hypertension. She is now certainly having some degree of orthostasis. We will be more than happ y to continue to follow the patient with you. At this time, we would just continue to monitor her du ring the episode of the second degree heart block type 1 or 2; she was totally asymptomatic, but she will need to be monitored and when she is discharged from the hospital, she may also need to undergo an event monitor to determine whether or not if she has any future episodes of lightheadedness, wheth er or not these are associated with the heart rate or if it is just orthostatic which actually is a n eurologic problem associated with most likely her diabetes.
--- NOTE | 2017-06-10 01:26 | CON ---
DATE OF CONSULTATION: 06/09/2017 PRIMARY CARE PHYSICIAN: Dr. Reagan Sullivan and Ms. Laura Mulligan, nurse practitioner. PRIMARY FREELANCE RECRUITER: Dr. Elizabeth Gipson. REFERRING DOCTOR: Dr. Sullivan. REASON FOR CARDIOLOGY CONSULTATION: Syncope episode, second-degree type 1 on the telemetry. HISTORY OF PRESENT ILLNESS: Ms. Grimes is a 62-year-old old female with significant hi story of diabetes type 2, hypertension, bipolar, history of anxiety and depression and noncompliant o f the medication and current smoker. The patient has the severe nausea and vomiting for one and a tena lf days prior to this admission. According to patient's family, the patient vomited 8-9 times. She had similar episodes prior to this admission. However, this time, her symptom was much worse than pr evious episodes, so she decided to present to the emergency department for further evaluation and familia atment. Prior to this admission, she feels very weak and dizziness; however, she denies any cardiac complaints. She was admitted to [place] [address] on 06/07/2017 around 11:00 at night. When patient gets up f rom the bed to go to the bathroom, she has severe dizziness and she feels she is falling, but at that time she could not hold herself and she fell and she hit her forehead right side of her face. She w as transferred to the [facility] and she was given fluid normal saline of 75 mL per an hour, and her blood pressure was 73 to high 80s with a heart rate 70s. However, she reports that she knew she is falling and she had a similar episode prior to this event at home. Whenever she get up or move quick, she f eels dizziness and she almost fall, near syncopal episodes; however, she denies any chest pain or dis comfort in her chest, palpitation or fluttering, shortness of breath or any other cardiac complaints during the episodes. She does not have any cardiac related medical history before next symptom. Ech ocardiogram was done on 06/08/2017, which shows EF of 60%-65%, normal size left atrium, mild mitral v alve regurgitation with moderate annular calcification and trace tricuspid regurgitation. The patien t had a carotid Doppler on 06/08/2017, which shows no significant stenosis in bilateral internal perez tid arteries. She reports that she is under severe anxiety and depression since the patient's son wa s murdered in 11/2015, since then, she states she cannot take care of herself, she have not take the medicine as prescribed. During the Cardiology consult assessment, patient denies chest pain or disco mfort to her chest, palpitation or fluttering of chest, nausea, vomiting or diaphoresis or any other cardiac complaints. PAST MEDICAL HISTORY: 1. Hypertension. 2. Type 2 diabetes. 3. Fibromyalgia. 4. Hypothyroidism. 5. Bipolar disorder. 6. Peripheral neuropathy. 7. Anxiety and depression. 8. Pneumonia and sepsis in 04/2017. PAST SURGICAL HISTORY: 1. Cholecystectomy. 2. Total hysterectomy. 3. x3. 4. Left hip surgery. 5. Gland removed from the left neck in 2005. FAMILY HISTORY: The patient's father due to myocardial infarction at age of 66. There is s ignificant history of hypertension and her brother, her son and herself had a history of diabetes. SOCIAL HISTORY: She lives with herself and all her family live in the [place], [place]. She denies alco hol abuse; however, she continues to smoke less than 1 pack a day and also she used marijuana once a month. ALLERGIES: She is allergic to LEVAQUIN and TORADOL. HOME MEDICATIONS: 1. Lamotrigine 25 mg at bedtime. 2. Clonazepam 0.5 mg twice a day. 3. Seroquel 200 mg at night. 4. DuoNeb every 4 hours as needed. 5. Hydrocodone/Harrington 10/325 one tablet every 4 hours as needed. 6. Levothyroxine 112 mcg per every day. 7. Lisinopril/hydrochlorothiazide 10/12.5 one tablet once a day. 8. Metformin 1000 mg twice a day. 9. Ranitidine 300 mg once a day. REVIEW OF SYSTEMS: The following complete review of systems was negative, unless otherwise mentioned in the HPI or below: Constitutional: She lost 50 pounds over the ER due to the depression and anxi ety, but negative for sense of well and also she reports that sometimes cannot function well due to t he anxiety and depression at home. Skin: Negative for rash, itching change of hair growth or loss, nail change. Breasts: Lump tenderness, swelling, nipple discharge. HEENT: Headache, vertigo, nasa l bleeding, cold, obstruction, discharge, dental difficulty, gingival bleeding, denture, neck stiffne ss, pain, tenderness, mass in the thyroid or other areas. Cardiovascular: Precordial pain, substerna l distress, palpitations, dyspnea on exertion, orthopnea, nocturnal dyspnea, edema, cyanosis, heart m urmurs, varicosis, claudication. Respiratory: Shortness of breath, wheezing, stridor, cough, hemopty sis. Gastrointestinal: Positive for poor appetite and nausea and vomiting for several occasions, bu t negative for dysphagia, indigestion, abdominal pain, jaundice, constipation, diarrhea, blood in the stool. Genitourinary: Urgency, frequency, dysuria, nocturia, hematuria, polyuria, oliguria, unusual color of urine. Musculoskeletal: Pain, swelling, redness or heat of the muscle or joint, limitatio n of motion. Neurologic: Positive for severe anxiety and depression, but negative for seizure, conv ersion, paralysis, tremor, incoordination, difficulty with memory or speech. PHYSICAL EXAMINATION: VITAL SIGNS: At this moment, blood pressure 123/63, heart rate 96, respiratory rate 16, O2 sat 95% w ith room air, temperature 99.2. GENERAL: Well-developed, well-nourished without any acute distress. HEAD: There is about an 8 cm incision open to air to the forehead, besides that normocephalic, atrau matic. EYES: There is hematoma to the right orbital area, but extraocular muscle movement intact. ENT: Oral and nasal mucosa are moist without lesion. NECK: No JVP. Neck is supple with normal range of motion. LUNGS: Rhonchi and expiratory wheezing bilaterally and diminished at the bases. CARDIOVASCULAR: Regular rate and rhythm, normal S1, S2. There are no S3, S4. There is murmur to th e right upper midsternal border, but no hives, thrill, bruits or rub noted. EXTREMITIES: 2+ pulses in bilateral dorsal pedis and bilateral posterior tibial and the left poplite al and bilateral femoral pulses, 1+ in the right popliteal pulse. Carotid pulse present without brui ts or thrill. No edema in the bilateral lower extremities. ABDOMEN: Soft, no mass to palpate, but slightly tenderness to palpate, nondistended. Bowel sounds a re present. MUSCULOSKELETAL: Able to move all extremities. She has a brace in her left ankle due to the fractur e from the fall. SKIN: Warm and dry. No skin rash noted. NEUROLOGIC: Alert, oriented x4, awake, normal affect. Nonfocal. PSYCHIATRIC: Mood and affect are normal. EKG: Telemetry records, the 9:00 today shows 11-12 second of second-degree AV block type 1. At that time, patient was symptomatic. Since then, the patient remained in sinus rhythm. LABORATORY DATA: WBC 10.1, hemoglobin 11.8, hematocrit 30.1, platelet 132. Sodium 131, potassium 3. 1 which recovered already today. BUN 5, creatinine 0.59, glucose 228, urine glucose of 500. ASSESSMENT AND PLAN: 1. Second-degree atrioventricular block type 1. The patient has 11-12 second of second-degree AV bl ock type 1 today around 9:00. The patient was symptomatic. At this moment, we like to continue to m onitor on the telemetry and a possible pacemaker placement or at least event monitor placement at discharge, but at this moment, we like to continue to monitor on the telemetry. 2. Near syncopal episode possible due to orthostatic hypotension. Patient reports that she had sev eral episode of orthostatic hypotension like symptoms at home and during this admission. Once the jabari harris was transferred to [address] [place] [address], she have not had any orthostatic vital signs. We like to check the patient's orthostatic vital sign blood pressure at this moment, and also we instructed the patient t o move and get up slowly to prevent the fall since she is living by herself at home. 3. Severe nausea, vomited. Due to the history of type 2 diabetes and known complaint of medication treatment, possible she started having gastroparesis. At this moment, the patient's condition is sta ble. At this moment, we like to continue to monitor. 4. Hypertension. Her blood pressure is stable at this moment, we like to continue to monitor. 5. Anxiety and depression. Since the patient is requesting to restart the clonazepam for her anxiet y and depression, we like to hold at this moment due to the history of fall. We defer to her primary care doctor. 6. Hypothyroidism. The patient is on levothyroxine, which is managed by the patient's primary care doctor. Thank you very much for allowing Cardiology service to participate in care of this patient. We will follow along with the patient care team and make further recommendations as appropriate.
[2017-06-10] MEDS: HYDROcodone/Acetaminophen 5/325 mg Tablet PO PRN ×2 (03:25→09:51)
[2017-06-10] MEDS: Levothyroxine Sodium 112 MCG TAB PO SCH (05:08)
[2017-06-10 05:53] LABS: ALT (SGPT) 8 U/L (8-55); AST (SGOT) 10 U/L (5-34); Albumin 2.8 g/dL (3.4-4.8); Alkaline Phosphatase 78 U/L (40-150); Anion Gap 11 mmol/L (10-20); BUN (Urea Nitrogen) 4 mg/dL (9.8-20.1); Bilirubin, Total 0.4 mg/dL (0.2-1.2); Calc. Creatinine Clearance 80 mL/min (70-130); Calcium 8.4 mg/dL (7.8-10.44); Carbon Dioxide 20 mmol/L (23-31); Chloride 107 mmol/L (98-107); Estimated GFR-MDRD Greater than 90; Globulin 1.8 g/dL (2.4-3.5); Glucose 252 mg/dL (80-115); Magnesium 1.4 mg/dL (1.6-2.6); Potassium 3.8 mmol/L (3.5-5.1); Protein, Total 4.6 g/dL (6.0-8.3); Sodium 134 mmol/L (136-145)
[2017-06-10] MEDS: Metoclopramide HCl 10 MG TAB PO SCH ×2 (08:00→11:16)
[2017-06-10] MEDS ORDERED: Lisinopril/Hydrochlorothiazide 20 mg/12.5 mg Tablet PO SCH (09:00)
[2017-06-10 09:43] VITALS: BP 144/67; TEMP 98.5
[2017-06-10] MEDS: metFORMIN 500 MG TAB PO SCH (09:47)
[2017-06-10] MEDS: Potassium Chloride 20 MEQ TAB PO SCH (09:50)
[2017-06-10] MEDS: Gabapentin 300 MG CAP PO SCH (09:51)
--- NOTE | 2017-06-10 10:09 | PDOC.CTH ---
Cardiology Progress Note - Subjective The pt seen and examined. No overnight events. No cardiac complaints. She denied lightheadedness or dizziness when she gets up from her bed or chair. - Objective Vital Signs Temp Pulse Resp BP Pulse Ox 06/10/17 09:49 81 06/10/17 08:00 98.5 F 81 18 144/67 H 95 06/10/17 04:00 98.1 F 75 16 123/69 97 Weight 120 lb 06/09/17 06/10/17 06/11/17 06:59 06:59 06:59 Intake Total 1999 1946 Output Total 5800 2200 Balance -8700 -253 - Physical Examination General/Neuro: alert & oriented x3 Neck: no JVD present Lungs: CTA Heart: RRR Abdomen: soft Extremities: other: (No edema; laseration @ forehead [employer]NICIAN.) - Telemetry Telemetry Rhythm: SR - Labs Result Diagrams: 06/09/17 04:17 06/10/17 05:06 - Assessment/Plan 1. Orthostatic Hypotension vs near syncopal episode - Recheck orthostatic BP this AM was stable; 2. Hx of 2ed AVB type 1 - 11-12 sec episode of 2nd AVB type 1 on 06/09/17; 3. N&V - Resolved 4. DM type 2 - stable; managed by PCP 5. HTN - stable with current med 6. Hypothyroidism - managed by PCP MAR Reviewed * From Cardiac standpoint, the pt is stable to d/c home with 2wks EVR monitor, which will mail to her address. * The pt will f/u with Dr Gipson' office within 4 wks. Review of Systems - Review of Systems Constitutional: reports: no symptoms reported EENTM: reports: no symptoms reported Respiratory: reports: no symptoms reported Cardiac (ROS): reports: no symptoms reported ABD/GI: reports: no symptoms reported : reports: no symptoms reported Musculoskeletal: reports: no symptoms reported Skin: reports: no symptoms reported
[2017-06-10] MEDS: Insulin Regular 300 UNITS/3 ML VIAL SC PRN (11:20)
--- NOTE | 2017-06-10 15:56 | DIS ---
FINAL DIAGNOSES: 1. Diabetes. 2. Status post fall with left ankle fracture. 3. Hypokalemia. 4. Hypertension. 5. Posttraumatic stress disorder. 6. Depression. 7. Syncope. 8. Second degree block. 9. Back pain. COMPLICATIONS: None. PROCEDURES: None. CONSULTANTS: 1. Dr. Nick. 2. Dr. Savage. 3. Dr. Gipson. 4. Dr. Rousseau. HOSPITAL COURSE: This is a pleasant 62-year-old female who presents to the hospital after she began having nausea and vomiting. When she presented to the hospital, she has had a blood sugar over 300 a nd potassium of 2.9. She was admitted to the hospital for further evaluation and treatment. See dic tated H&P for pertinent information. Upon my evaluation, her sodium is 133, potassium 2.9, blood sug ar was 300, after she came in, once, she was given medication it was less than 300. She was started on her diabetic medicines antiemetic control, IV fluids. Her home medications were adjusted accordin gly. The patient unfortunately had a syncopal episode and fell and was found on the fourth floor, a code green was called. Dr. Nick came to the scene where she had a laceration on the forehead, he did sutured that. CT of the head was obtained, which was normal. The patient has been moved to [facility] for closer observation. The patient was given all of her home medications and became lethargic, is believed, it was probably from a dose of Seroquel she takes at home. A repeat CT of the head was obtained, which was also unremarkable, but this showed swelling with subcutaneous emphysema in the fr ont soft tissues and the preseptal soft tissues of the right orbit. This was related to her fall. T he patient was continued on IV fluids. She was also found to have a left ankle fracture. She was se en by Dr. Rousseau for her left ankle fracture. He felt like there was no surgical intervention warranted at this time and her fracture could be treated conservatively in a boot. The patient was e ventually transferred out of [facility]. She was tolerating her diet. Her pain was under control. She di d have a carotid Doppler and echocardiogram, both that were unremarkable. She was found to have seco nd degree AV block and seen by Dr. Gipson. Dr. Gipson did feel like since she was asymptomatic from that . She could be followed on an outpatient basis and would most likely need an event monitor. The pat ient's potassium finally came up. Her Prinzide had to be increased secondary to hypertension. On , she had a good night. Her pain was under control. She had no complaints. She did not wan t to go to correction facility or any type of rehab, but did want to go home where her son and h er granddaughter would help oversee her care as the patient does live at home. Patient was discharge d home on 06/10/2017 in stable condition. DIET: Diabetic diet. ACTIVITIES: As tolerated by the patient. DISCHARGE MEDICATIONS: Included: 1. Clonazepam 0.5 mg b.i.d. 2. Gabapentin 600 mg 4 times a day. 3. Hydrocodone that she takes at home. Her prescription will not be left for this. 4. Lamotrigine 25 mg every day. 5. Levothyroxine 112 mcg every day. 6. Prinzide 20/12.5 mg every day. 7. Metformin 1000 mg b.i.d. 8. Seroquel 100 mg every day. 9. Zantac 300 mg every day. 10. Metoprolol 25 mg every day. FOLLOWUP: She will follow up with Laura in 1 week. She will also follow outpatient with Cardio a nd Ortho as indicated. Patient verbalized understanding. Total time spent with the patient and after reviewing the chart and dictating discharge summary was 3 0 minutes. This is ASHLIE Lujan dictating for Dr. Reagan Sullivan.
== END 2017-06-10 14:19 | disposition home or self-care (01) | DRG 989 ==
LOC: ERS 23:42 → T4-B 06-07 05:35 → IMCU/EMU 06-08 02:43 → OBSVTOIN 06-08 08:24 → 2NO 06-08 18:40
PROVIDERS: ADMIT Specialist; ATTEND Specialist
PROC: 0KQ00ZZ Repair Head Muscle, Open Approach (ICD-10-PCS; principal; 2017-06-08)
DX: E11.10 Type 2 diabetes mellitus with ketoacidosis without coma (principal); I44.1 Atrioventricular block, second degree; S01.01XA Laceration without foreign body of scalp, initial encounter; S82.892A Other fracture of left lower leg, initial encounter for closed fracture; E03.9 Hypothyroidism, unspecified; J44.9 Chronic obstructive pulmonary disease, unspecified; E11.42 Type 2 diabetes mellitus with diabetic polyneuropathy; I10 Essential (primary) hypertension; E87.6 Hypokalemia; M79.7 Fibromyalgia; Z91.19 Patient's noncompliance with other medical treatment and regimen; Z79.84 Long term (current) use of oral hypoglycemic drugs; F17.210 Nicotine dependence, cigarettes, uncomplicated; M54.9 Dorsalgia, unspecified; F43.10 Post-traumatic stress disorder, unspecified; I95.1 Orthostatic hypotension; E86.0 Dehydration; Y93.9 Activity, unspecified; W18.30XA Fall on same level, unspecified, initial encounter; Y92.239 Unspecified place in hospital as the place of occurrence of the external cause; F31.9 Bipolar disorder, unspecified; F12.90 Cannabis use, unspecified, uncomplicated; F41.9 Anxiety disorder, unspecified
CPT/HCPCS: 36415; 36416; 70450; 72125; 80048; 80053; 81001; 82010; 83735; 85025; 87086; 93306; 93880; 96365; 96366; 96375; A4216; G8978-GP-CN; G8979-GP-CK; J0360; J1815; J2405; J3480; J7050; Q0162

== ENCOUNTER 2017-08-26 15:52 | Emergency (ER) | payer MEDICARE ==
[2017-08-26] MEDS ORDERED: HYDROcodone/Acetaminophen 5/325 mg Tablet ONE (18:29)
== END 2017-08-26 19:46 | disposition home or self-care (01) ==
LOC: ERS 15:52
DX: M79.672 Pain in left foot (principal); E03.9 Hypothyroidism, unspecified; E11.9 Type 2 diabetes mellitus without complications; F31.9 Bipolar disorder, unspecified; F17.210 Nicotine dependence, cigarettes, uncomplicated; I10 Essential (primary) hypertension; J45.909 Unspecified asthma, uncomplicated; K58.9 Irritable bowel syndrome, unspecified
CPT/HCPCS: 99283